=== PATIENT | male | born 1945 | race Caucasian/White ===

== ENCOUNTER 2016-06-27 16:38 | Inpatient (IN) | payer MEDICARE, OTHER ==
--- NOTE | ~2016-06-27 | EGD ---
EGD REPORT [facility] [address] [address] NAME: ROGERS ELIZALDE : [birth year] STATUS : ADM IN PAT#: [id number] AGE: 70 ADM/REG DATE : 06/27/16 MR#: [id number] REPORT SERV DATE: 07/03/16 DICTATED BY: SUKHDEV CLEMONS DATE: 07/03/16 REPORT STATUS : Draft [facility]ANS[facility]: [facility] DATE: 07/03/16 Endoscopy Center Patient Name: Rogers Elizalde Date of : 1945 Attending MD: SUKHDEV CLEMONS MD Procedure Date No Time: 07/03/2016 Procedure: Colonoscopy Indications: Hematochezia, Heme positive stool, Rectal bleeding, Acute post hemorrhagic anemia, Personal history of colonic polyps Medicines: Propofol per Anesthesia Complications: No immediate complications. Procedure: Pre-Anesthesia Assessment: - ASA Grade Assessment: III - A patient with severe systemic disease. After I obtained informed consent, the scope was passed under direct vision. Throughout the procedure, the patient's blood pressure, pulse, and oxygen saturations were monitored continuously. The CF [id number] was introduced through the anus and advanced to the terminal ileum. The colonoscopy was performed without difficulty. The patient tolerated the procedure well. The quality of the bowel preparation was excellent. Findings: The perianal and digital rectal examinations were normal. The terminal ileum appeared normal. The colon (entire examined portion) appeared normal. Non-bleeding internal hemorrhoids were found during retroflexion and were mild, small and Grade I (internal hemorrhoids that do not prolapse). Impression: - The examined portion of the ileum was normal. - The entire examined colon is normal. - Non-bleeding internal hemorrhoids. Recommendation: - Return to previous diet. - Continue present medications. - Resume Coumadin (warfarin) at prior dose today. Refer to managing physician for further adjustment of therapy. - Repeat colonoscopy in 3 years for surveillance. - Check hemoglobin daily. - Check CBC,BMP,LFTs,Mg, in the morning. - [facility]. Procedure Code(s): --- Professional --- EGD REPORT [address] [address] NAME: ROGERS ELIZALDE : [birth year] STATUS : ADM IN [facility]#: [id number] AGE: 70 ADM/REG DATE : 06/27/16 MR#: [id number] REPORT SERV DATE: 07/03/16 DICTATED BY: SUKHDEV CLEMONS DATE: 07/03/16 REPORT STATUS : Draft TRANSCRIBED BY: [employer] DATE: 07/03/16 [address]64[address], Colonoscopy, flexible, proximal to splenic flexure; diagnostic, with or without collection of specimen(s) by brushing or washing, with or without colon decompression (separate procedure) Diagnosis Code(s): --- Professional --- K64.0, First degree hemorrhoids K92.1, Melena R19.5, Other fecal abnormalities K62.5, Hemorrhage of anus and rectum D62, Acute posthemorrhagic anemia Z86.010, Personal history of colonic polyps CPT copyright 2013 [employer]. All rights reserved. The codes documented in this report are preliminary and upon clinical coder review may be revised to meet current compliance requirements. Sukhdev Clemons MD SUKHDEV CLEMONS MD 07/03/2016 4:18 PM This report has been signed electronically. Number of Addenda: 0 Note Initiated On: 07/03/2016 3:22 PM Scope Withdrawal Time 0 hours 24 minutes 37 seconds [address] [place] [address]
--- NOTE | ~2016-06-27 | DS ---
Discharge Summary [address] [id number] [place]. [address] NAME: SNEHA BRICEÑO : [birth year] STATUS : ADM IN PAT#: [id number] AGE: 70 ADM/REG DATE : 06/27/16 MR#: [id number] REPORT SERV DATE: 07/06/16 DICTATED BY: YANI CORDOVA DATE: 07/05/16 REPORT STATUS : Draft TRANSCRIBED BY: MODL DATE: 07/05/16 ADMISSION DATE: 06/27/2016 DISCHARGE DATE: 07/05/2016 CONDITION ON DISCHARGE: Stable. DIAGNOSES ON DISCHARGE: 1. Gastrointestinal bleed, probably lower gastrointestinal bleed, could have been from diverticulosis/hemorrhoids, upper gastrointestinal bleed had an unclear source. 2. The patient underwent both upper and lower endoscopy. Upper endoscopy did not show any evidence of any acute bleed. Lower endoscopy showed colon filled with blood initially. Repeat colonoscopy showed that the blood had completely cleared up and all the patient had was just internal hemorrhoids, hence, the source of bleed is still unclear, could have been hemorrhoids and/or diverticulosis and/or combination. 3. Hemorrhagic shock - resolved after resuscitation with blood transfusion. 4. Paroxysmal atrial fibrillation and status post aortic valve replacement with mechanical aortic valve - the patient is on chronic anticoagulation with Coumadin. This is stable now and Coumadin has been restarted as the patient has been having more episodes of gastrointestinal bleed. 5. Acute blood loss anemia - resolved. 6. Hypertension - stable. 7. History of previous gastric bypass. 8. Chronic low back pain. 9. Chronic kidney disease, stage IV, followed by Dr. Anthony Akbar. Hypertension is controlled now with the lower dose of Coreg at 6.25 mg twice a day. As the patient had an episode of hypotension or low blood pressure, Norvasc has been stopped and his lisinopril has been stopped also. His Lasix is being resumed at 40 mg once a day instead of twice a day. ADVICE ON DISCHARGE: For the patient to follow up with Dr. Resendiz in one or two weeks as scheduled before. Dr. Resendiz is his director of technology. BRIEF HOSPITAL COURSE: I took care of this patient on 07/03/2016 onwards. For hospital course before that, please refer to interim discharge summary dictated by Dr. Clement. After I got the patient as a transfer back, he was stabilized. He had no more episodes of GI bleed, but the patient was scheduled for another colonoscopy as a colonoscopy that was performed by Dr. Finley first time showed that his entire colon was filled with blood and there was very poor visibility. But on the day that the patient was about to have colonoscopy, his potassium came back at 5.9, and hence, this was canceled briefly. The patient was given a dose of Lasix and this brought his potassium down and eventually he did get the second colonoscopy done on 07/03/2016. This colonoscopy showed that the colon was clear of blood, but the patient did have internal hemorrhoids. The patient was transferred back to the floor in stable condition. He was doing well and was about to be discharged yesterday when his blood pressure dropped after he was given a dose of Coreg. It was deemed that the patient was extremely dry and dehydrated and his fluid intake was increased and he Discharge Summary [address] [address] NAME: SNEHA BRICEÑO : [birth year] STATUS : ADM IN [facility]#: [id number] AGE: 70 ADM/REG DATE : 06/27/16 MR#: [id number] REPORT SERV DATE: 07/06/16 DICTATED BY: YANI CORDOVA DATE: 07/05/16 REPORT STATUS : Draft TRANSCRIBED BY: TRACE DATE: 07/05/16 was started on IV normal saline. With fluid resuscitation again, his blood pressure stabilized. Dr. Resendiz was consulted also briefly. The suggestion now is for patient to continue Coreg 6.25 mg p.o. b.i.d. Note that this is a much lower dose than his home dose. So, the patient finally will be discharged on the following medications where there are significant changes. He will continue taking the home dose of the following medications: 1. Lipitor 40 mg once a day. 2. Calcitriol 0.25 mcg once a day. 3. Cymbalta 60 mg once a day. 4. Vitamin D as he takes all the time. 5. Levothyroxine 50 mcg p.o. daily. 6. Lyrica 75 mg p.o. b.i.d. 7. Zanaflex 4 mg p.o. daily. 8. Hydrocodone/APAP or [place] 10/325 one p.o. q.6 hours p.r.n. for back pain. 9. Ambien 10 mg p.o. q.h.s. p.r.n. 10.He will continue his home Coumadin dose at 8.5 mg p.o. daily. The patient is very well aware of his condition and well aware as to how to adjust his Coumadin dose and how important it is to follow up with PT/INR. The following changes have been made to the following medications, however, 1. The patient will reduce the dose of Coreg to 6.25 mg p.o. b.i.d. 2. Lasix reduced to 40 mg once a day instead of twice a day. 3. He will stop his amlodipine and he will also stop his lisinopril. The patient again is to follow up with Dr. Resendiz in the next one to two weeks and with PCP within the next two weeks to three weeks. The patient states that he will make arrangements for that himself. I have the following labs on this patient on the day of discharge, his hemoglobin is 8.9, hematocrit is 27.7, WBC count is 6.8, and platelet count is 197. His electrolyte profile shows sodium of 145, potassium of 5.1, chloride of 114, BUN is 44, creatinine is 2.37 which is consistent with his CKD, stage IV. Magnesium levels have also come down and is 2.5 right now. Hence, the patient is being discharged home in stable condition with above medications and above instructions. I have spent about 40 minutes in coordinating discharge care of this patient including face- to-face encounter and summarizing this entire discharge. RRA/MODL Yani Cordova M.D. / [id number] CC: Discharge Summary [address] [facility] [place] [address] NAME: SNEHA BRICEÑO DEANDRE : [birth year] STATUS : ADM IN [facility]#: [id number] AGE: 70 ADM/REG DATE : 06/27/16 MR#: [id number] REPORT SERV DATE: 07/06/16 DICTATED BY: YANI CORDOVA DATE: 07/05/16 REPORT STATUS : Draft TRANSCRIBED BY: MODL DATE: 07/05/16 Sherif Cabrera M.D.
--- NOTE | ~2016-06-27 | DS ---
Discharge Summary [facility] [address] [place]. [address] NAME: SNEHA BRICEÑO : 47 STATUS : DIS IN PAT#: [id number] AGE: 70 ADM/REG DATE : 06/27/16 MR#: [id number] REPORT SERV DATE: 07/09/16 DICTATED BY: YANI CORDOVA DATE: 07/08/16 REPORT STATUS : Draft TRANSCRIBED BY: MODL DATE: 07/08/16 ADMISSION DATE: 06/27/2016 DISCHARGE DATE: 07/08/2016 ADDENDUM: DISPOSITION: Discharge to home. BRIEF HOSPITAL COURSE: The patient's discharge was held by both his export packer, Dr. Resendiz and myself so that his INR could at least get close to being therapeutic. This is because the patient has metallic or mechanical aortic valve, and his INR needs to be between 2.5 and 3.5. The patient understood the high risk of embolic stroke if his INR was not therapeutic. Besides his GI bleed had completely resolved. Hence, we were waiting for his INR to be therapeutic and given his renal function also as patient has CKD level 4, it was a very delicate issue to send the patient home without his INR being therapeutic. He was monitored from 07/05/2016 to 07/08/2016. He has been given Coumadin 15 mg yesterday, and finally, his INR is close to 2 at 1.5. However, patient insists that he goes home. However, patient is very aware of his own condition, he has his own machine at home and he checks his own INR at home. He has been doing this for years and has been adjusting his own medications too. So this is a very compliant and very knowledgeable patient, who is well aware of his condition. So he is being discharged home today 07/08/2016 with the following advice. He will take 15 mg of Coumadin tonight, and tomorrow, he will back down on the Coumadin to 12 mg. He will continue the 12 mg on 07/10/2016. After 07/09/2016, he will go back to his home dose of 8.5 mg p.o. at bedtime. The patient has also been advised to check his INR daily for the next three days, and after that, go every other day before he goes to checking his INR once a week. He understands that his INR has to get therapeutic and has to be above 2 and close to at least 2.5 before he is able to back off on his Coumadin. He knows how to adjust his own Coumadin dose and he will be probably on his chronic Coumadin therapy at 8.5 mg p.o. daily within the next few days. He will follow up with export packer, Dr. Resendiz within a week and also his kidney specialist, Dr. Akbar within the next few weeks as scheduled. Otherwise nothing else has changed in his original discharge summary that I have dictated on the 07/05/2016. Hence, the patient is being discharged home in stable condition with the above instructions. RRA/MODL Yani Cordova M.D. / [id number] CC: Sherif Cabrera M.D.
--- NOTE | ~2016-06-27 | EGD ---
EGD REPORT [facility] [address] [address] NAME: ROGERS ELIZALDE : 47 STATUS : ADM IN PAT#: [id number] AGE: 70 ADM/REG DATE : 06/27/16 MR#: [id number] REPORT SERV DATE: 06/29/16 DICTATED BY: SUKHDEV CLEMONS DATE: 06/29/16 REPORT STATUS : Draft [facility]ANSCRIBED [facility]: [facility] DATE: 06/29/16 Endoscopy Center Patient Name: Rogers Elizalde Date of : 1945 Attending MD: SUKHDEV CLEMONS MD Procedure Date No Time: 06/29/2016 Procedure: Colonoscopy Indications: Hematochezia, Rectal bleeding, Gastrointestinal bleeding, Acute post hemorrhagic anemia Referring MD: Phoebe CORONADO MD Medicines: Sedation Administered by an Anesthesia Professional Complications: Hypotension, treated with medication, and termination of the procedure. Procedure: Pre-Anesthesia Assessment: - ASA Grade Assessment: III - A patient with severe systemic disease. After I obtained informed consent, the scope was passed under direct vision. Throughout the procedure, the patient's blood pressure, pulse, and oxygen saturations were monitored continuously. The [id number] was introduced through the anus and advanced to the cecum, identified by appendiceal orifice and ileocecal valve. The colonoscopy was performed with difficulty due to the patient's cardiovascular instability (hypotension). Successful completion of the procedure was aided by managing the patient's medical instability. The patient tolerated the procedure poorly due to the patient's cardiovascular instability (hypotension). The quality of the bowel preparation was poor. Findings: The digital rectal exam was abnormal. Findings include dark red blood on the digit. Red blood was found at the anus, in the rectum, in the recto-sigmoid colon, in the sigmoid colon, in the descending colon, at the splenic flexure, in the transverse colon, at the hepatic flexure, in the ascending colon, in the cecum and at the ileocecal valve. before I could intubate the TI he bceame very hypotensive and was not responding to meds and I was asked to terminate the procedure by Anesthesia and the scope was removed rapidly for patient safety. When the scope was removed he stabilized. Impression: - Preparation of the colon was poor. - Dark red blood on the digit found on digital rectal exam. EGD REPORT [place] [address] [facility] [place]. [address] NAME: ROGERS ELIZALDE : [birth year] STATUS : ADM IN [facility]#: [id number] AGE: 70 ADM/REG DATE : 06/27/16 MR#: [id number] REPORT SERV DATE: 06/29/16 DICTATED BY: SUKHDEV CLEMONS DATE: 06/29/16 REPORT STATUS : Draft TRANSCRIBED BY: [employer] DATE: 06/29/16 - Blood at the anus, in the rectum, in the recto-sigmoid colon, in the sigmoid colon, in the descending colon, at the splenic flexure, in the transverse colon, at the hepatic flexure, in the ascending colon, in the cecum and at the ileocecal valve. Recommendation: - Clear liquid diet. - Do a GI bleeding (tagged RBC) scan today. - possibly an angiogram - [facility]. Procedure Code(s): --- Professional --- [address], Colonoscopy, flexible, proximal to splenic flexure; diagnostic, with or without collection of specimen(s) by brushing or washing, with or without colon decompression (separate procedure) Diagnosis Code(s): --- Professional --- K62.5, Hemorrhage of anus and rectum K92.2, Gastrointestinal hemorrhage, unspecified K92.1, Melena D62, Acute posthemorrhagic anemia I95.89, Other hypotension CPT copyright 2013 [employer]. All rights reserved. The codes documented in this report are preliminary and upon production line mechanic review may be revised to meet current compliance requirements. Sukhdev Clemons MD SUKHDEV CLEMONS MD 06/29/2016 1:01 PM This report has been signed electronically. Number of Addenda: 0 Note Initiated On: 06/29/2016 10:30 AM Scope Withdrawal Time 0 hours 1 minute 16 seconds [address] [address]
--- NOTE | ~2016-06-27 | CN ---
Consultation Report [facility] [address] [place]. [address] NAME: SNEHA BRICEÑO : [birth year] STATUS : ADM IN PAT#: [id number] AGE: 70 ADM/REG DATE : 06/27/16 MR#: [id number] REPORT SERV DATE: 07/01/16 DICTATED BY: DERRICK CROSS DATE: 06/30/16 REPORT STATUS : Draft TRANSCRIBED BY: MODL DATE: 06/30/16 SURGERY CONSULTATION NOTE DATE OF CONSULTATION: 06/30/2016 REASON FOR CONSULTATION: GI bleed. HISTORY OF PRESENT ILLNESS: This is a 70-year-old male with a history of stage IV chronic kidney disease, diabetes mellitus, coronary artery bypass grafting with mechanical aortic valve replacement for which the patient is chronically anticoagulated on Coumadin as well as Rey-en-Y gastric bypass in 1999. The patient describes a 4-day history of blood per rectum started initially as diarrhea. The patient then reported it became more melenic and subsequently progressed to gross hematochezia with clots. The patient was seen in the emergency department and transfused 4 units of packed red blood cells and 4 units of FFP. GI was consulted. EGD was performed, which demonstrated no active bleeding. A colonoscopy was performed, which demonstrated blood throughout the entirety of the colon, but otherwise nondiagnostic. Of note, the patient did become hypotensive during the colonoscopy procedure. The patient's hematocrit has been stable at 30 over the last 24 hours. Heparin drip is being started today. Surgery was consulted to evaluate for a possible surgical intervention. Of note, the patient also had a tagged red blood cell scan, which also did not demonstrate any active bleeding. ALLERGIES: NO KNOWN DRUG ALLERGIES. PAST MEDICAL HISTORY: Per history of present illness along with atrial fibrillation, pacemaker, hypertension, peripheral neuropathy. PAST SURGICAL HISTORY: Per history of present illness along with cholecystectomy and ventral hernia repair with small bowel resection and a Maze procedure. MEDICATIONS: Per medication reconciliation. FAMILY HISTORY: Alzheimer's disease and coronary artery disease. SOCIAL HISTORY: No alcohol. The patient had past tobacco use, but does not currently smoke. REVIEW OF SYSTEMS: A 12-point review of systems is conducted and notable for those items in the history of present illness. PHYSICAL EXAMINATION: VITAL SIGNS: Temperature 97.9, blood pressure 153/72, heart rate 88, respiratory rate 14, pulse oximetry 96% on 2 L nasal cannula. GENERAL: No acute distress. Alert and oriented x3. Consultation Report [facility] [address] [place]. [address] NAME: SNEHA BRICEÑO : [birth year] STATUS : ADM IN [facility]#: [id number] AGE: 70 ADM/REG DATE : 06/27/16 MR#: [id number] REPORT SERV DATE: 07/01/16 DICTATED BY: DERRICK CROSS DATE: 06/30/16 REPORT STATUS : Draft TRANSCRIBED BY: [employer]ACE DATE: 06/30/16 HEENT: Normocephalic and atraumatic. Pupils are equal, round, and reactive to light and accommodation. Extraocular muscles intact. NECK: Supple and nontender. CARDIOVASCULAR: Regular rate and rhythm. PULMONARY: Clear to auscultation bilaterally. ABDOMEN: Soft, nondistended, and nontender. EXTREMITIES: Moves all extremities. 2+ radial pulses bilaterally. LABORATORY STUDIES: Significant for hematocrit of 30, which has been stable over 24 hours. Last INR was 1.3. BMP remarkable for elevated BUN of 99, creatinine of 2.4. ASSESSMENT AND PLAN: This is a 70-year-old male with a gastrointestinal bleed possibly from gastric remnant and duodenal limb as the patient is status post gastric bypass. Given the patient's hematocrit is stable, the patient is likely no longer bleeding, I would recommend continuing to check serial hematocrits after beginning heparin. If the patient rebleeds, the patient may require surgical exploration. DICTATED BY: MD CLINTON Reynaga/TRACE Derrick Cross M.D. / [id number] CC: Evelin Zhong M.D.
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
--- NOTE | ~2016-06-27 | CN ---
Consultation Report [address] [place]. [address] NAME: ROGERS ELIZALDE : 47 STATUS : ADM IN PAT#: [id number] AGE: 70 ADM/REG DATE : 06/27/16 MR#: [id number] REPORT SERV DATE: 07/01/16 DICTATED BY: JOSE ELDRIDGE DATE: 07/01/16 REPORT STATUS : Draft TRANSCRIBED BY: MODMena DATE: 07/01/16 CONSULTATION DATE OF CONSULTATION: REASON FOR CONSULTATION: Rogers Elizalde is a 70-year-old male, known to our service, who enters with GI bleed. CVD PHYSICIAN: Wilfrid Resendiz M.D. HISTORY OF PRESENT ILLNESS: Mr. Elizalde was admitted on 06/27 with GI bleed, after noting bright red blood in his stool, this is now resolved and we are asked to consider anticoagulation status. REVIEW OF SYSTEMS: Negative for chest pain, chest discomfort, palpitations, syncope, presyncope, or fever. PAST MEDICAL HISTORY: 1. History of gastric bypass. 2. History of coronary bypass grafting in 2010. 3. History of atrial fibrillation, on anticoagulation. 4. History of bilateral DVT. 5. History of hyperlipidemia. 6. History of permanent cardiac pacemaker. 7. Type 2 diabetes. SOCIAL HISTORY: He does not drink or smoke. He has recently had gastric bypass surgery in the year 1999. FAMILY HISTORY: Negative for early heart disease. PHYSICAL EXAMINATION: VITAL SIGNS: Blood pressure is 127/78 with 193/96 yesterday. Pulse is in the high 90s. He is afebrile, resting comfortably. GENERAL: He is alert, oriented, resting well. He is still moderately obese. EYES: PERRLA. LUNGS: No labored use of accessory muscles without rales or wheezes. COR: PMI is not displaced. No thrills or heaves. NL S1 and S2. No S3, murmur, click, or rub. PULSES: Carotids without bruits. ABD: +BS, nontender. EXT: No cyanosis, clubbing, or edema. SKIN: No petechiae. NEURO: Alert and oriented. Does not appear anxious or depressed. Consultation Report [address] [place]. [address] NAME: ROGERS ELIZALDE : 47 STATUS : ADM IN PAT#: [id number] AGE: 70 ADM/REG DATE : 06/27/16 MR#: [id number] REPORT SERV DATE: 07/01/16 DICTATED BY: JOSE ELDRIDGE DATE: 07/01/16 REPORT STATUS : Draft TRANSCRIBED BY: TRACE DATE: 07/01/16 LABORATORY EVALUATION: None new at this time. Creatinine is elevated at 1.9. INR is 1.3. ASSESSMENT: 1. High risk off anticoagulation. Full-dose cardiac heparin has been started. We will start Coumadin if cleared by GI. 2. Chronic kidney disease, currently stable. 3. Hypertension. We will restart antihypertensive medication including Norvasc and carvedilol. We will restart lisinopril in the morning if blood pressure tolerates. 4. GI bleed. We will check with GI before starting anticoagulation. 5. History of sick sinus syndrome, status post pacemaker placement with underlying chronic atrial fibrillation. GARRETT/TRACE Jose Eldridge M.D. / [id number] CC: Sherif Munoz M.D.
--- NOTE | ~2016-06-27 | EGD ---
EGD REPORT [facility] [address] [address] NAME: ROGERS ELIZALDE : 47 STATUS : ADM IN PAT#: [id number] AGE: 70 ADM/REG DATE : 06/27/16 MR#: [id number] REPORT SERV DATE: 06/28/16 DICTATED BY: SUKHDEV CLEMONS DATE: 06/28/16 REPORT STATUS : Draft TRANSCRIBED BY: [facility] DATE: 06/28/16 Endoscopy Center Patient Name: Rogers Elizalde Date of : 1945 Attending MD: SUKHDEV CLEMONS MD Procedure Date No Time: 06/28/2016 Procedure: Upper GI endoscopy Indications: Acute post hemorrhagic anemia, Hematochezia, Heme positive stool, Melena Referring MD: Phoebe CORONADO MD Medicines: Propofol per Anesthesia Complications: No immediate complications. Procedure: Pre-Anesthesia Assessment: - ASA Grade Assessment: IV - A patient with severe systemic disease that is a constant threat to life. After obtaining informed consent, the endoscope was passed under direct vision. Throughout the procedure, the patient's blood pressure, pulse, and oxygen saturations were monitored continuously. The GIF [id number] [id number] was introduced through the mouth, and advanced to the efferent jejunal loop. The upper GI endoscopy was accomplished without difficulty. The patient tolerated the procedure well. Findings: The examined esophagus was normal. A small hiatus hernia was present. as seen on retroflexion Evidence of a gastric bypass was found. A gastric pouch with a normal size was found. The staple line appeared intact. The gastrojejunal anastomosis was characterized by healthy appearing mucosa. This was traversed. The mlyho-ct-wpheyfq limb was characterized by healthy appearing mucosa. The omqkygcy-xf-buzddkw limb was not examined as it could not be reached. The entire examined stomach was normal. The examined jejunum was normal. Impression: - Normal esophagus. - Hiatus hernia. - Gastric bypass with a normal-sized pouch intact staple line. - Normal stomach. - Normal examined jejunum. Recommendation: - Clear liquid diet. - Perform a colonoscopy tomorrow. EGD REPORT [address] [address] NAME: ROGERS ELIZALDE : 47 STATUS : ADM IN [facility]#: [id number] AGE: 70 ADM/REG DATE : 06/27/16 MR#: [id number] REPORT SERV DATE: 06/28/16 DICTATED BY: SUKHDEV CLEMONS DATE: 06/28/16 REPORT STATUS : Draft TRANSCRIBED BY: Panève DATE: 06/28/16 - Check hemoglobin q 6 hours for two days. - Check PT/INR tonight. - Check PT/INR in the morning. - [facility] patient [facility]. Procedure Code(s): --- Professional --- 19846, Esophagogastroduodenoscopy, flexible, transoral; diagnostic, including collection of specimen(s) by brushing or washing, when performed (separate procedure) Diagnosis Code(s): --- Professional --- K44.9, Diaphragmatic hernia without obstruction or gangrene Z98.84, Bariatric surgery status D62, Acute posthemorrhagic anemia K92.1, Melena R19.5, Other fecal abnormalities CPT copyright 2013 [employer]. All rights reserved. The codes documented in this report are preliminary and upon field recruiter review may be revised to meet current compliance requirements. Sukhdev Clemons MD SUKHDEV CLEMONS MD 06/28/2016 3:50 PM This report has been signed electronically. Number of Addenda: 0 Note Initiated On: 06/28/2016 3:11 PM Scope Withdrawal Time 0 hours 0 minutes 0 seconds [address] [address]
[2016-06-27 16:56] LABS: BASOPHILS 0.2 %; BASOPHILS ABSOLUTE 0.03 10/3/uL (0.0-0.16); EOSINOPHILS 2.3 %; IMMATURE GRANULOCYTES 1.1 %; IMMATURE GRANULOCYTES ABSOLUTE 0.15 10/3/uL (0.0-0.11); LYMPHOCYTES 9.6 %; LYMPHOCYTES ABSOLUTE 1.27 10/3/uL (0.67-4.30); MEAN CORPUS HGB CONC 33.2 g/dL (32.0-36.0); MEAN CORPUSCULAR HEMOGLOB 32.1 pg (26.0-34.0); MEAN CORPUSCULAR VOLUME 96.6 fL (80-100); MEAN PLATELET VOLUME 10.4 fL (9.2-13.0); MONOCYTES 7.8 %; MONOCYTES ABSOLUTE 1.03 10/3/uL (0.21-1.20); NEUTROPHILS ABSOLUTE 10.42 10/3/uL (2.02-8.40); WHITE BLOOD CELLS 13.2 10/3/uL (4.5-10.5)
[2016-06-27 16:58] LABS: HEMATOCRIT 28.6 % (40.0-51.0); HEMOGLOBIN 9.5 g/dL (13.6-17.8); MANUAL DIFF NO %; PLATELET COUNT 279 10/3/uL (150-400); RED CELL COUNT 2.96 10/6/uL (4.7-6.1)
[2016-06-27 17:06] LABS: INTERNATIONAL NORMAL RATI 1.9 UNITS (-); PARTIAL THROMBO TIME 25.8 SEC (22.5-37.2); PROTIME (NOT ORD) 21.7 SEC (12.0-14.5)
[2016-06-27 17:10] LABS: CALCIUM, SERUM 8.1 MG/DL (8.5-10.4); CHLORIDE, SERUM 108 MMOL/L (96-112); CO2 (CARBON DIOXIDE) 24 MMOL/L (24-34); CREATININE 2.58 MG/DL (0.70-1.30); GFR AFRICAN AMERICAN 28 ML/MIN (>=60); GFR NON AFRICAN AMERICAN 24 ML/MIN (>=60); POTASSIUM, SERUM 5.2 MMOL/L (3.5-5.3); SGOT(AST) 30 U/L (5-40); SGPT(ALT) 40 U/L (5-65); SODIUM, SERUM 142 MMOL/L (135-148); TOTAL BILIRUBIN 0.5 MG/DL (0-1.2)
[2016-06-27 17:11] LABS: ALKALINE PHOSPHATASE 75 U/L (45-117); BUN (BLOOD UREA NITROGEN) 104 MG/DL (6-23); GLOBULIN 3.1 G/DL (2.5-4.1); GLUCOSE, SERUM 160 MG/DL (60-99); TOTAL PROTEIN 6.1 G/DL (6.0-8.5)
[2016-06-27] MEDS ORDERED: NORV5 PO (17:50)
[2016-06-27] MEDS ORDERED: AUG875 PO (17:52)
[2016-06-27] MEDS ORDERED: LIPITOR40 PO (17:53)
[2016-06-27] MEDS ORDERED: CYMBALTA60 PO (17:53)
[2016-06-27] MEDS ORDERED: COREG25 PO (17:53)
[2016-06-27] MEDS ORDERED: ROCALTROL0.25 MCG PO (17:53)
[2016-06-27] MEDS ORDERED: ZESTRIL20 MG PO (17:54)
[2016-06-27] MEDS ORDERED: NORCO1 TAB PO (17:54)
[2016-06-27] MEDS ORDERED: L80 PO (17:54)
[2016-06-27] MEDS ORDERED: LEVOTHYROXIN50 MCG PO (17:54)
[2016-06-27] MEDS ORDERED: ZANAFLEX 4 MG TA4 MG PO (17:55)
[2016-06-27] MEDS ORDERED: LYRICA75 PO (17:55)
[2016-06-27] MEDS ORDERED: BACTROCR TOP (17:55)
[2016-06-27] MEDS ORDERED: C1 PO (17:56)
[2016-06-27] MEDS ORDERED: VITD PO (17:56)
[2016-06-27] MEDS ORDERED: FERROUS SULF325 M1 PO (17:57)
[2016-06-27] MEDS ORDERED: AMB10 PO (17:57)
[2016-06-27] MEDS ORDERED: DSS PO (17:57)
[2016-06-27 22:29] LABS: GLYCOHEMOGLOBIN (HbA1c) 5.7 % (4.7-6.1)
[2016-06-27 22:56] LABS: HEMATOCRIT 26.6 % (40.0-51.0); HEMOGLOBIN 8.7 g/dL (13.6-17.8)
[2016-06-27 22:56] LABS: B NATRIURETIC PEPTIDE (BNP) 232.9 PG/ML (< 100.0)
[2016-06-28 05:14] LABS: INTERNATIONAL NORMAL RATI 1.5 UNITS (-)
[2016-06-28 05:17] LABS: BASOPHILS 0.3 %; BASOPHILS ABSOLUTE 0.03 10/3/uL (0.0-0.16); EOSINOPHILS 2.4 %; EOSINOPHILS ABSOLUTE 0.24 10/3/uL (0.0-0.53); LYMPHOCYTES 22.5 %; LYMPHOCYTES ABSOLUTE 2.26 10/3/uL (0.67-4.30); MEAN CORPUS HGB CONC 33.5 g/dL (32.0-36.0); MEAN CORPUSCULAR HEMOGLOB 32.4 pg (26.0-34.0); MEAN CORPUSCULAR VOLUME 96.8 fL (80-100); MEAN PLATELET VOLUME 10.3 fL (9.2-13.0); MONOCYTES 7.8 %; MONOCYTES ABSOLUTE 0.78 10/3/uL (0.21-1.20); NEUTROPHILS ABSOLUTE 6.64 10/3/uL (2.02-8.40); PLATELET COUNT 232 10/3/uL (150-400); RBC DISTRIBUTION WIDTH 14.9 % (12.0-16.0); RED CELL COUNT 2.47 10/6/uL (4.7-6.1); WHITE BLOOD CELLS 10.1 10/3/uL (4.5-10.5)
[2016-06-28 05:18] LABS: ER CBC TAT 0 Hrs 22 MinsNP; HEMATOCRIT 23.9 % (40.0-51.0); MANUAL DIFF NO %; PROTIME (NOT ORD) 17.7 SEC (12.0-14.5)
[2016-06-28 05:22] LABS: BUN (BLOOD UREA NITROGEN) 99 MG/DL (6-23); CALCIUM, SERUM 8.4 MG/DL (8.5-10.4); CHLORIDE, SERUM 108 MMOL/L (96-112); CO2 (CARBON DIOXIDE) 25 MMOL/L (24-34); GFR AFRICAN AMERICAN 31 ML/MIN (>=60); GFR NON AFRICAN AMERICAN 27 ML/MIN (>=60); GLUCOSE, SERUM 109 MG/DL (60-99); POTASSIUM, SERUM 4.7 MMOL/L (3.5-5.3); SODIUM, SERUM 143 MMOL/L (135-148)
[2016-06-28 12:02] LABS: HEMATOCRIT 18.8 % (40.0-51.0); HEMOGLOBIN 6.2 g/dL (13.6-17.8)
[2016-06-28 12:11] LABS: INTERNATIONAL NORMAL RATI 1.6 UNITS (-); PROTIME (NOT ORD) 18.6 SEC (12.0-14.5)
[2016-06-28 17:33] LABS: HEMATOCRIT 26.7 % (40.0-51.0)
[2016-06-28 22:56] LABS: HEMATOCRIT 26.8 % (40.0-51.0); HEMOGLOBIN 9.2 g/dL (13.6-17.8)
[2016-06-29 05:58] LABS: INTERNATIONAL NORMAL RATI 1.4 UNITS (-); PROTIME (NOT ORD) 16.8 SEC (12.0-14.5)
[2016-06-29 06:09] LABS: BASOPHILS 0.5 %; BASOPHILS ABSOLUTE 0.05 10/3/uL (0.0-0.16); EOSINOPHILS 6.7 %; EOSINOPHILS ABSOLUTE 0.62 10/3/uL (0.0-0.53); HEMATOCRIT 24.2 % (40.0-51.0); HEMOGLOBIN 8.2 g/dL (13.6-17.8); IMMATURE GRANULOCYTES 1.1 %; LYMPHOCYTES 23.5 %; LYMPHOCYTES ABSOLUTE 2.19 10/3/uL (0.67-4.30); MEAN CORPUS HGB CONC 33.9 g/dL (32.0-36.0); MEAN CORPUSCULAR HEMOGLOB 31.5 pg (26.0-34.0); MEAN PLATELET VOLUME 10.6 fL (9.2-13.0); MONOCYTES 7.7 %; MONOCYTES ABSOLUTE 0.72 10/3/uL (0.21-1.20); NEUTROPHILS 60.5 %; NEUTROPHILS ABSOLUTE 5.64 10/3/uL (2.02-8.40); PLATELET COUNT 220 10/3/uL (150-400); RBC DISTRIBUTION WIDTH 17.3 % (12.0-16.0); WHITE BLOOD CELLS 9.3 10/3/uL (4.5-10.5)
[2016-06-29 06:14] LABS: MANUAL DIFF NO %; MEAN CORPUSCULAR VOLUME 93.1 fL (80-100)
[2016-06-29 06:17] LABS: ALBUMIN 2.9 G/DL (3.5-5.0); ALKALINE PHOSPHATASE 69 U/L (45-117); CALCIUM, SERUM 8.2 MG/DL (8.5-10.4); CHLORIDE, SERUM 113 MMOL/L (96-112); CO2 (CARBON DIOXIDE) 24 MMOL/L (24-34); CREATININE 2.05 MG/DL (0.70-1.30); GFR AFRICAN AMERICAN 37 ML/MIN (>=60); GFR NON AFRICAN AMERICAN 32 ML/MIN (>=60); GLOBULIN 2.9 G/DL (2.5-4.1); GLUCOSE, SERUM 94 MG/DL (60-99); POTASSIUM, SERUM 4.7 MMOL/L (3.5-5.3); SGOT(AST) 33 U/L (5-40); SGPT(ALT) 37 U/L (5-65); SODIUM, SERUM 147 MMOL/L (135-148); TOTAL BILIRUBIN 0.6 MG/DL (0-1.2); TOTAL PROTEIN 5.8 G/DL (6.0-8.5)
[2016-06-29 06:20] LABS: BUN (BLOOD UREA NITROGEN) 84 MG/DL (6-23)
[2016-06-29 09:09] LABS: HEMATOCRIT 23.7 % (40.0-51.0)
[2016-06-29 23:14] LABS: INTERNATIONAL NORMAL RATI 1.3 UNITS (-)
[2016-06-29 23:38] LABS: HEMATOCRIT 29.8 % (40.0-51.0)
[2016-06-30 04:01] LABS: HEMATOCRIT 30.2 % (40.0-51.0); HEMOGLOBIN 10.2 g/dL (13.6-17.8)
[2016-06-30 04:06] LABS: INTERNATIONAL NORMAL RATI 1.3 UNITS (-); PROTIME (NOT ORD) 16.1 SEC (12.0-14.5)
[2016-06-30 08:41] LABS: HEMOGLOBIN 9.8 g/dL (13.6-17.8); MEAN CORPUS HGB CONC 32.7 g/dL (32.0-36.0); MEAN CORPUSCULAR HEMOGLOB 30.2 pg (26.0-34.0); MEAN CORPUSCULAR VOLUME 92.3 fL (80-100); PLATELET COUNT 203 10/3/uL (150-400); RBC DISTRIBUTION WIDTH 17.9 % (12.0-16.0); RED CELL COUNT 3.25 10/6/uL (4.7-6.1); WHITE BLOOD CELLS 7.7 10/3/uL (4.5-10.5)
[2016-06-30 08:42] LABS: MANUAL DIFF YES %
[2016-06-30 09:14] LABS: BASOPHILS ABSOLUTE (CALC) 0.15 10/3/uL (0.0-0.16); EOSINOPHILS ABSOLUTE (CALC) 0.15 10/3/uL (0.0-0.53); LYMPHOCYTES 16 %; LYMPHOCYTES ABSOLUTE (CALC) 1.23 10/3/uL (0.67-4.30); MONOCYTES 8 %; MONOCYTES ABSOLUTE (CALC) 0.62 10/3/uL (0.21-1.20); NEUTROPHILS ABSOLUTE (CALC) 5.54 10/3/uL (2.02-8.40); SEGMENTED NEUTROPHIL (0) 72 %; TOTAL NUCLEATED CELLS 100
[2016-06-30 09:15] LABS: ANISOCYTOSIS 1+ (5-10/OIF) (0-5/OIF); EOSINOPHILS 4 %; PLATELET ESTIMATE ADQ (ADEQUATE)
[2016-06-30 16:41] LABS: HEMATOCRIT 27.6 % (40.0-51.0); HEMOGLOBIN 9.4 g/dL (13.6-17.8)
[2016-06-30 16:48] LABS: PARTIAL THROMBO TIME 39.3 SEC (22.5-37.2)
[2016-06-30 22:13] LABS: HEMATOCRIT 29.5 % (40.0-51.0)
[2016-06-30 22:23] LABS: PARTIAL THROMBO TIME 50.8 SEC (22.5-37.2)
[2016-07-01 06:22] LABS: BASOPHILS 0.4 %; BASOPHILS ABSOLUTE 0.04 10/3/uL (0.0-0.16); EOSINOPHILS 6.9 %; EOSINOPHILS ABSOLUTE 0.64 10/3/uL (0.0-0.53); HEMATOCRIT 29.2 % (40.0-51.0); IMMATURE GRANULOCYTES 0.6 %; IMMATURE GRANULOCYTES ABSOLUTE 0.06 10/3/uL (0.0-0.11); LYMPHOCYTES 20.6 %; LYMPHOCYTES ABSOLUTE 1.92 10/3/uL (0.67-4.30); MEAN CORPUS HGB CONC 34.2 g/dL (32.0-36.0); MEAN CORPUSCULAR HEMOGLOB 32.2 pg (26.0-34.0); MEAN CORPUSCULAR VOLUME 93.9 fL (80-100); MEAN PLATELET VOLUME 10.3 fL (9.2-13.0); MONOCYTES ABSOLUTE 0.84 10/3/uL (0.21-1.20); NEUTROPHILS 62.5 %; NEUTROPHILS ABSOLUTE 5.83 10/3/uL (2.02-8.40); PLATELET COUNT 248 10/3/uL (150-400); RBC DISTRIBUTION WIDTH 17.9 % (12.0-16.0); RED CELL COUNT 3.11 10/6/uL (4.7-6.1); WHITE BLOOD CELLS 9.3 10/3/uL (4.5-10.5)
[2016-07-01 06:30] LABS: INTERNATIONAL NORMAL RATI 1.3 UNITS (-); MANUAL DIFF NO %; PROTIME (NOT ORD) 16.3 SEC (12.0-14.5)
[2016-07-01 06:48] LABS: ALBUMIN 3.1 G/DL (3.5-5.0); ALKALINE PHOSPHATASE 76 U/L (45-117); CALCIUM, SERUM 8.8 MG/DL (8.5-10.4); CHLORIDE, SERUM 112 MMOL/L (96-112); CREATININE 1.89 MG/DL (0.70-1.30); GFR AFRICAN AMERICAN 41 ML/MIN (>=60); GFR NON AFRICAN AMERICAN 35 ML/MIN (>=60); POTASSIUM, SERUM 4.4 MMOL/L (3.5-5.3); SGOT(AST) 38 U/L (5-40); SGPT(ALT) 33 U/L (5-65); SODIUM, SERUM 142 MMOL/L (135-148); TOTAL BILIRUBIN 0.6 MG/DL (0-1.2); TOTAL PROTEIN 6.1 G/DL (6.0-8.5)
[2016-07-01 06:54] LABS: BUN (BLOOD UREA NITROGEN) 44 MG/DL (6-23); CO2 (CARBON DIOXIDE) 19 MMOL/L (24-34); GLUCOSE, SERUM 122 MG/DL (60-99)
[2016-07-01 07:00] LABS: PARTIAL THROMBO TIME > 150.0 SEC (22.5-37.2)
[2016-07-01 13:58] LABS: HEMATOCRIT 23.8 % (40.0-51.0); HEMOGLOBIN 7.8 g/dL (13.6-17.8)
[2016-07-01 14:04] LABS: INTERNATIONAL NORMAL RATI 1.4 UNITS (-); PROTIME (NOT ORD) 17.3 SEC (12.0-14.5)
[2016-07-01 14:06] LABS: PARTIAL THROMBO TIME 98.5 SEC (22.5-37.2)
[2016-07-02 07:19] LABS: BASOPHILS 0.3 %; BASOPHILS ABSOLUTE 0.02 10/3/uL (0.0-0.16); EOSINOPHILS 6.8 %; EOSINOPHILS ABSOLUTE 0.45 10/3/uL (0.0-0.53); IMMATURE GRANULOCYTES 0.5 %; IMMATURE GRANULOCYTES ABSOLUTE 0.03 10/3/uL (0.0-0.11); LYMPHOCYTES 18.2 %; MEAN CORPUSCULAR HEMOGLOB 30.1 pg (26.0-34.0); MEAN CORPUSCULAR VOLUME 91.1 fL (80-100); MEAN PLATELET VOLUME 9.9 fL (9.2-13.0); MONOCYTES 8.6 %; MONOCYTES ABSOLUTE 0.57 10/3/uL (0.21-1.20); NEUTROPHILS 65.6 %; NEUTROPHILS ABSOLUTE 4.34 10/3/uL (2.02-8.40); PLATELET COUNT 188 10/3/uL (150-400); RBC DISTRIBUTION WIDTH 17.2 % (12.0-16.0); RED CELL COUNT 3.36 10/6/uL (4.7-6.1); WHITE BLOOD CELLS 6.6 10/3/uL (4.5-10.5)
[2016-07-02 07:25] LABS: HEMATOCRIT 30.6 % (40.0-51.0); HEMOGLOBIN 10.1 g/dL (13.6-17.8); MANUAL DIFF NO %
[2016-07-02 07:33] LABS: CALCIUM, SERUM 8.3 MG/DL (8.5-10.4); CHLORIDE, SERUM 114 MMOL/L (96-112); CO2 (CARBON DIOXIDE) 22 MMOL/L (24-34); CREATININE 1.64 MG/DL (0.70-1.30); GFR AFRICAN AMERICAN 49 ML/MIN (>=60); GFR NON AFRICAN AMERICAN 42 ML/MIN (>=60); POTASSIUM, SERUM 4.5 MMOL/L (3.5-5.3); SODIUM, SERUM 143 MMOL/L (135-148)
[2016-07-02 07:34] LABS: BUN (BLOOD UREA NITROGEN) 38 MG/DL (6-23); GLUCOSE, SERUM 95 MG/DL (60-99)
[2016-07-02 07:48] LABS: INTERNATIONAL NORMAL RATI 1.2 UNITS (-)
[2016-07-02 07:56] LABS: PROTIME (NOT ORD) 14.7 SEC (12.0-14.5)
[2016-07-02 11:54] LABS: HEMATOCRIT 28.3 % (40.0-51.0); HEMOGLOBIN 9.4 g/dL (13.6-17.8)
[2016-07-02 18:10] LABS: HEMOGLOBIN 10.5 g/dL (13.6-17.8)
[2016-07-03 01:31] LABS: HEMATOCRIT 30.9 % (40.0-51.0); HEMOGLOBIN 10.3 g/dL (13.6-17.8)
[2016-07-03 06:07] LABS: INTERNATIONAL NORMAL RATI 1.1 UNITS (-); PROTIME (NOT ORD) 14.1 SEC (12.0-14.5)
[2016-07-03 06:08] LABS: BASOPHILS 0.1 %; BASOPHILS ABSOLUTE 0.01 10/3/uL (0.0-0.16); EOSINOPHILS ABSOLUTE 0.47 10/3/uL (0.0-0.53); HEMATOCRIT 31.2 % (40.0-51.0); HEMOGLOBIN 10.4 g/dL (13.6-17.8); IMMATURE GRANULOCYTES 0.4 %; IMMATURE GRANULOCYTES ABSOLUTE 0.03 10/3/uL (0.0-0.11); LYMPHOCYTES 17.5 %; LYMPHOCYTES ABSOLUTE 1.17 10/3/uL (0.67-4.30); MANUAL DIFF NO %; MEAN CORPUS HGB CONC 33.3 g/dL (32.0-36.0); MEAN CORPUSCULAR HEMOGLOB 31.2 pg (26.0-34.0); MEAN CORPUSCULAR VOLUME 93.7 fL (80-100); MEAN PLATELET VOLUME 10.6 fL (9.2-13.0); MONOCYTES 7.2 %; MONOCYTES ABSOLUTE 0.48 10/3/uL (0.21-1.20); NEUTROPHILS 67.8 %; NEUTROPHILS ABSOLUTE 4.54 10/3/uL (2.02-8.40); PLATELET COUNT 203 10/3/uL (150-400); RBC DISTRIBUTION WIDTH 17.1 % (12.0-16.0); RED CELL COUNT 3.33 10/6/uL (4.7-6.1); WHITE BLOOD CELLS 6.7 10/3/uL (4.5-10.5)
[2016-07-03 06:14] LABS: ALBUMIN 3.1 G/DL (3.5-5.0); CALCIUM, SERUM 8.3 MG/DL (8.5-10.4); CHLORIDE, SERUM 111 MMOL/L (96-112); CO2 (CARBON DIOXIDE) 22 MMOL/L (24-34); GFR AFRICAN AMERICAN 44 ML/MIN (>=60); GFR NON AFRICAN AMERICAN 38 ML/MIN (>=60); GLUCOSE, SERUM 107 MG/DL (60-99); PHOSPHORUS, SERUM 3.1 MG/DL (2.5-4.5); SODIUM, SERUM 141 MMOL/L (135-148)
[2016-07-03 06:15] LABS: BUN (BLOOD UREA NITROGEN) 34 MG/DL (6-23); POTASSIUM, SERUM 5.7 MMOL/L (3.5-5.3)
[2016-07-03 10:25] LABS: BASOPHILS 0.1 %; BASOPHILS ABSOLUTE 0.01 10/3/uL (0.0-0.16); EOSINOPHILS 6.7 %; EOSINOPHILS ABSOLUTE 0.45 10/3/uL (0.0-0.53); HEMOGLOBIN 10.3 g/dL (13.6-17.8); IMMATURE GRANULOCYTES 0.6 %; IMMATURE GRANULOCYTES ABSOLUTE 0.04 10/3/uL (0.0-0.11); LYMPHOCYTES 11.3 %; LYMPHOCYTES ABSOLUTE 0.76 10/3/uL (0.67-4.30); MANUAL DIFF NO %; MEAN CORPUS HGB CONC 33.2 g/dL (32.0-36.0); MEAN CORPUSCULAR HEMOGLOB 31.5 pg (26.0-34.0); MEAN CORPUSCULAR VOLUME 94.8 fL (80-100); MEAN PLATELET VOLUME 10.5 fL (9.2-13.0); MONOCYTES 11.3 %; MONOCYTES ABSOLUTE 0.76 10/3/uL (0.21-1.20); NEUTROPHILS ABSOLUTE 4.68 10/3/uL (2.02-8.40); PLATELET COUNT 189 10/3/uL (150-400); RBC DISTRIBUTION WIDTH 17.1 % (12.0-16.0); RED CELL COUNT 3.27 10/6/uL (4.7-6.1); WHITE BLOOD CELLS 6.7 10/3/uL (4.5-10.5)
[2016-07-03 10:40] LABS: BUN (BLOOD UREA NITROGEN) 32 MG/DL (6-23); CALCIUM, SERUM 8.4 MG/DL (8.5-10.4); CHLORIDE, SERUM 111 MMOL/L (96-112); CO2 (CARBON DIOXIDE) 24 MMOL/L (24-34); CREATININE 1.91 MG/DL (0.70-1.30); GFR AFRICAN AMERICAN 41 ML/MIN (>=60); GFR NON AFRICAN AMERICAN 35 ML/MIN (>=60); GLUCOSE, SERUM 109 MG/DL (60-99); POTASSIUM, SERUM 5.9 MMOL/L (3.5-5.3); SODIUM, SERUM 141 MMOL/L (135-148)
[2016-07-03 13:29] LABS: HEMATOCRIT 30.4 % (40.0-51.0); HEMOGLOBIN 10.1 g/dL (13.6-17.8)
[2016-07-03 14:20] LABS: POTASSIUM, SERUM 5.5 MMOL/L (3.5-5.3)
[2016-07-03 18:01] LABS: HEMATOCRIT 32.3 % (40.0-51.0); HEMOGLOBIN 10.6 g/dL (13.6-17.8)
[2016-07-03 18:14] LABS: POTASSIUM, SERUM 5.4 MMOL/L (3.5-5.3)
[2016-07-03 23:09] LABS: HEMATOCRIT 31.8 % (40.0-51.0); HEMOGLOBIN 10.1 g/dL (13.6-17.8)
[2016-07-04 06:36] LABS: BASOPHILS 0.4 %; BASOPHILS ABSOLUTE 0.03 10/3/uL (0.0-0.16); EOSINOPHILS 5.1 %; EOSINOPHILS ABSOLUTE 0.36 10/3/uL (0.0-0.53); HEMATOCRIT 28.8 % (40.0-51.0); HEMOGLOBIN 9.6 g/dL (13.6-17.8); IMMATURE GRANULOCYTES 0.3 %; IMMATURE GRANULOCYTES ABSOLUTE 0.02 10/3/uL (0.0-0.11); LYMPHOCYTES 15.6 %; MEAN CORPUS HGB CONC 33.3 g/dL (32.0-36.0); MEAN CORPUSCULAR HEMOGLOB 30.7 pg (26.0-34.0); MEAN PLATELET VOLUME 10.6 fL (9.2-13.0); MONOCYTES 12.1 %; MONOCYTES ABSOLUTE 0.85 10/3/uL (0.21-1.20); NEUTROPHILS 66.5 %; NEUTROPHILS ABSOLUTE 4.67 10/3/uL (2.02-8.40); PLATELET COUNT 182 10/3/uL (150-400); RBC DISTRIBUTION WIDTH 17.3 % (12.0-16.0); RED CELL COUNT 3.13 10/6/uL (4.7-6.1)
[2016-07-04 06:44] LABS: MANUAL DIFF NO %
[2016-07-04 06:47] LABS: INTERNATIONAL NORMAL RATI 1.2 UNITS (-); PROTIME (NOT ORD) 15.2 SEC (12.0-14.5)
[2016-07-04 06:54] LABS: ALBUMIN 2.8 G/DL (3.5-5.0); ALKALINE PHOSPHATASE 87 U/L (45-117); CALCIUM, SERUM 8.1 MG/DL (8.5-10.4); CHLORIDE, SERUM 114 MMOL/L (96-112); CO2 (CARBON DIOXIDE) 23 MMOL/L (24-34); CREATININE 2.27 MG/DL (0.70-1.30); DIRECT BILIRUBIN 0.1 MG/DL (0.0-0.4); GFR AFRICAN AMERICAN 33 ML/MIN (>=60); GFR NON AFRICAN AMERICAN 28 ML/MIN (>=60); GLUCOSE, SERUM 94 MG/DL (60-99); INDIRECT BILIRUBIN(NOT ORDER) 0.3 MG/DL (0.1-0.9); POTASSIUM, SERUM 5.3 MMOL/L (3.5-5.3); SGOT(AST) 39 U/L (5-40); SGPT(ALT) 36 U/L (5-65); SODIUM, SERUM 144 MMOL/L (135-148); TOTAL BILIRUBIN 0.4 MG/DL (0-1.2); TOTAL PROTEIN 5.6 G/DL (6.0-8.5)
[2016-07-04 06:55] LABS: BUN (BLOOD UREA NITROGEN) 41 MG/DL (6-23)
[2016-07-04 06:57] LABS: PARTIAL THROMBO TIME 113.6 SEC (22.5-37.2)
[2016-07-05 01:49] LABS: BASOPHILS 0.1 %; BASOPHILS ABSOLUTE 0.01 10/3/uL (0.0-0.16); EOSINOPHILS 6.6 %; EOSINOPHILS ABSOLUTE 0.45 10/3/uL (0.0-0.53); HEMATOCRIT 27.7 % (40.0-51.0); HEMOGLOBIN 8.9 g/dL (13.6-17.8); IMMATURE GRANULOCYTES 0.4 %; IMMATURE GRANULOCYTES ABSOLUTE 0.03 10/3/uL (0.0-0.11); LYMPHOCYTES ABSOLUTE 1.15 10/3/uL (0.67-4.30); MEAN CORPUS HGB CONC 32.1 g/dL (32.0-36.0); MEAN CORPUSCULAR HEMOGLOB 30.5 pg (26.0-34.0); MEAN PLATELET VOLUME 10.6 fL (9.2-13.0); MONOCYTES 11.2 %; MONOCYTES ABSOLUTE 0.76 10/3/uL (0.21-1.20); NEUTROPHILS 64.7 %; NEUTROPHILS ABSOLUTE 4.38 10/3/uL (2.02-8.40); PLATELET COUNT 197 10/3/uL (150-400); RBC DISTRIBUTION WIDTH 17.3 % (12.0-16.0); RED CELL COUNT 2.92 10/6/uL (4.7-6.1); WHITE BLOOD CELLS 6.8 10/3/uL (4.5-10.5)
[2016-07-05 01:50] LABS: MANUAL DIFF NO %; MEAN CORPUSCULAR VOLUME 94.9 fL (80-100)
[2016-07-05 02:02] LABS: BUN (BLOOD UREA NITROGEN) 44 MG/DL (6-23); CALCIUM, SERUM 7.6 MG/DL (8.5-10.4); CHLORIDE, SERUM 114 MMOL/L (96-112); CO2 (CARBON DIOXIDE) 24 MMOL/L (24-34); CREATININE 2.37 MG/DL (0.70-1.30); GFR AFRICAN AMERICAN 31 ML/MIN (>=60); GFR NON AFRICAN AMERICAN 27 ML/MIN (>=60); GLUCOSE, SERUM 89 MG/DL (60-99); POTASSIUM, SERUM 5.1 MMOL/L (3.5-5.3); SODIUM, SERUM 145 MMOL/L (135-148)
[2016-07-05 02:36] LABS: INTERNATIONAL NORMAL RATI 1.1 UNITS (-); PROTIME (NOT ORD) 14.5 SEC (12.0-14.5)
[2016-07-06 02:32] LABS: BASOPHILS 0.3 %; BASOPHILS ABSOLUTE 0.02 10/3/uL (0.0-0.16); EOSINOPHILS 6.7 %; EOSINOPHILS ABSOLUTE 0.43 10/3/uL (0.0-0.53); HEMOGLOBIN 9.4 g/dL (13.6-17.8); IMMATURE GRANULOCYTES 0.5 %; IMMATURE GRANULOCYTES ABSOLUTE 0.03 10/3/uL (0.0-0.11); LYMPHOCYTES ABSOLUTE 1.02 10/3/uL (0.67-4.30); MEAN CORPUS HGB CONC 32.4 g/dL (32.0-36.0); MEAN CORPUSCULAR VOLUME 95.7 fL (80-100); MEAN PLATELET VOLUME 10.3 fL (9.2-13.0); MONOCYTES 8.9 %; MONOCYTES ABSOLUTE 0.57 10/3/uL (0.21-1.20); NEUTROPHILS 67.6 %; NEUTROPHILS ABSOLUTE 4.31 10/3/uL (2.02-8.40); PLATELET COUNT 186 10/3/uL (150-400); RBC DISTRIBUTION WIDTH 16.9 % (12.0-16.0); RED CELL COUNT 3.03 10/6/uL (4.7-6.1); WHITE BLOOD CELLS 6.4 10/3/uL (4.5-10.5)
[2016-07-06 02:38] LABS: MANUAL DIFF NO %
[2016-07-06 02:44] LABS: BUN (BLOOD UREA NITROGEN) 46 MG/DL (6-23); CALCIUM, SERUM 7.3 MG/DL (8.5-10.4); CHLORIDE, SERUM 113 MMOL/L (96-112); CO2 (CARBON DIOXIDE) 22 MMOL/L (24-34); CREATININE 2.07 MG/DL (0.70-1.30); GFR AFRICAN AMERICAN 37 ML/MIN (>=60); GFR NON AFRICAN AMERICAN 32 ML/MIN (>=60); POTASSIUM, SERUM 4.9 MMOL/L (3.5-5.3); SODIUM, SERUM 142 MMOL/L (135-148)
[2016-07-06 02:47] LABS: GLUCOSE, SERUM 140 MG/DL (60-99)
[2016-07-06 03:06] LABS: INTERNATIONAL NORMAL RATI 1.1 UNITS (-); PROTIME (NOT ORD) 14.4 SEC (12.0-14.5)
[2016-07-06 03:07] LABS: PARTIAL THROMBO TIME 63.7 SEC (22.5-37.2)
[2016-07-07 08:20] LABS: BASOPHILS 0.1 %; BASOPHILS ABSOLUTE 0.01 10/3/uL (0.0-0.16); EOSINOPHILS 5.2 %; EOSINOPHILS ABSOLUTE 0.48 10/3/uL (0.0-0.53); HEMATOCRIT 27.4 % (40.0-51.0); HEMOGLOBIN 8.7 g/dL (13.6-17.8); IMMATURE GRANULOCYTES 0.3 %; IMMATURE GRANULOCYTES ABSOLUTE 0.03 10/3/uL (0.0-0.11); LYMPHOCYTES 9.8 %; MEAN CORPUS HGB CONC 31.8 g/dL (32.0-36.0); MEAN CORPUSCULAR HEMOGLOB 30.3 pg (26.0-34.0); MEAN CORPUSCULAR VOLUME 95.5 fL (80-100); MEAN PLATELET VOLUME 10.4 fL (9.2-13.0); MONOCYTES 10.2 %; MONOCYTES ABSOLUTE 0.94 10/3/uL (0.21-1.20); NEUTROPHILS 74.4 %; NEUTROPHILS ABSOLUTE 6.87 10/3/uL (2.02-8.40); PLATELET COUNT 199 10/3/uL (150-400); RBC DISTRIBUTION WIDTH 17.6 % (12.0-16.0); RED CELL COUNT 2.87 10/6/uL (4.7-6.1)
[2016-07-07 08:22] LABS: MANUAL DIFF NO %; WHITE BLOOD CELLS 9.2 10/3/uL (4.5-10.5)
[2016-07-07 08:28] LABS: INTERNATIONAL NORMAL RATI 1.3 UNITS (-); PROTIME (NOT ORD) 15.8 SEC (12.0-14.5)
[2016-07-07 08:30] LABS: PARTIAL THROMBO TIME 88.8 SEC (22.5-37.2)
[2016-07-07 08:33] LABS: BUN (BLOOD UREA NITROGEN) 45 MG/DL (6-23); CALCIUM, SERUM 8.2 MG/DL (8.5-10.4); CHLORIDE, SERUM 115 MMOL/L (96-112); CO2 (CARBON DIOXIDE) 20 MMOL/L (24-34); CREATININE 2.04 MG/DL (0.70-1.30); GFR AFRICAN AMERICAN 37 ML/MIN (>=60); GFR NON AFRICAN AMERICAN 32 ML/MIN (>=60); POTASSIUM, SERUM 5.2 MMOL/L (3.5-5.3); SODIUM, SERUM 143 MMOL/L (135-148)
[2016-07-07 08:36] LABS: GLUCOSE, SERUM 87 MG/DL (60-99)
[2016-07-08 07:00] LABS: INTERNATIONAL NORMAL RATI 1.5 UNITS (-); PROTIME (NOT ORD) 18.3 SEC (12.0-14.5)
[2016-07-08 10:29] LABS: BASOPHILS 0.2 %; BASOPHILS ABSOLUTE 0.01 10/3/uL (0.0-0.16); EOSINOPHILS 8.1 %; EOSINOPHILS ABSOLUTE 0.46 10/3/uL (0.0-0.53); HEMATOCRIT 26.1 % (40.0-51.0); HEMOGLOBIN 8.4 g/dL (13.6-17.8); IMMATURE GRANULOCYTES 0.4 %; IMMATURE GRANULOCYTES ABSOLUTE 0.02 10/3/uL (0.0-0.11); LYMPHOCYTES 15.8 %; MEAN CORPUS HGB CONC 32.2 g/dL (32.0-36.0); MEAN CORPUSCULAR HEMOGLOB 31.3 pg (26.0-34.0); MEAN CORPUSCULAR VOLUME 97.4 fL (80-100); MONOCYTES 9.3 %; MONOCYTES ABSOLUTE 0.53 10/3/uL (0.21-1.20); NEUTROPHILS 66.2 %; NEUTROPHILS ABSOLUTE 3.76 10/3/uL (2.02-8.40); PLATELET COUNT 196 10/3/uL (150-400); RED CELL COUNT 2.68 10/6/uL (4.7-6.1); WHITE BLOOD CELLS 5.7 10/3/uL (4.5-10.5)
[2016-07-08 10:30] LABS: MANUAL DIFF NO %
[2016-07-08 10:41] LABS: BUN (BLOOD UREA NITROGEN) 46 MG/DL (6-23); CALCIUM, SERUM 8.1 MG/DL (8.5-10.4); CHLORIDE, SERUM 115 MMOL/L (96-112); CO2 (CARBON DIOXIDE) 22 MMOL/L (24-34); CREATININE 2.09 MG/DL (0.70-1.30); GFR AFRICAN AMERICAN 36 ML/MIN (>=60); GFR NON AFRICAN AMERICAN 31 ML/MIN (>=60); GLUCOSE, SERUM 98 MG/DL (60-99); POTASSIUM, SERUM 5.1 MMOL/L (3.5-5.3); SODIUM, SERUM 144 MMOL/L (135-148)
[2016-07-08] MEDS ORDERED: COUMADIN PO ×3 (11:28→11:30)
[2016-07-17] MEDS ORDERED: DORYX100 MG PO (14:59)
[2017-01-21] MEDS ORDERED: L20 PO (21:31)
[2017-01-21] MEDS ORDERED: LIPITOR40 PO (21:32)
[2017-01-21] MEDS ORDERED: NORCO1 TAB PO (21:32)
[2017-01-21] MEDS ORDERED: C5 PO (21:33)
[2017-01-21] MEDS ORDERED: ROCALTROL 0.0.25 MCG PO (21:34)
[2017-01-21] MEDS ORDERED: COUMADIN6 MG PO (21:34)
[2017-01-21] MEDS ORDERED: C1 PO (21:34)
[2017-01-21] MEDS ORDERED: ZAROX2.5B PO (21:35)
[2017-01-21] MEDS ORDERED: ZANAFLEX 4 MG TA4 MG PO (21:36)
[2017-01-21] MEDS ORDERED: Z100 PO (21:36)
[2017-01-21] MEDS ORDERED: NORV5 PO (21:36)
[2017-01-21] MEDS ORDERED: LYRICA75 PO (21:36)
[2017-01-21] MEDS ORDERED: VITD PO (21:37)
[2017-01-21] MEDS ORDERED: AMB10 PO (21:37)
[2017-01-21] MEDS ORDERED: CYMBALTA60 PO (21:37)
[2017-01-21] MEDS ORDERED: MOVANTIK12.5 MG PO (21:38)
[2017-01-21] MEDS ORDERED: PROTONIX PO (21:38)
[2017-01-21] MEDS ORDERED: SYN.05 PO (21:38)
[2017-01-21] MEDS ORDERED: COREG6 PO (21:39)
[2017-01-21] MEDS ORDERED: NITROSTAT0.4 MG SL (21:40)
[2017-01-21] MEDS ORDERED: CARTIA XT120 MG/24 PO (21:40)
[2017-01-21] MEDS ORDERED: 8 HOUR650 MG PO (21:41)
[2017-01-21] MEDS ORDERED: ASAB PO (21:42)
[2017-01-21] MEDS ORDERED: CYANO1000T PO (21:42)
[2017-01-21] MEDS ORDERED: MULTIVIT/MIN PO (21:43)
[2017-01-21] MEDS ORDERED: FISH-EPA1000 MG PO (21:43)
[2017-01-21] MEDS ORDERED: FERROUS SULF325 M1 PO (21:43)
[2017-01-21] MEDS ORDERED: BACTROCR TOP (21:44)
[2017-01-29] MEDS ORDERED: PHOSLO PO (15:32)
[2017-02-02] MEDS ORDERED: COUMADIN4 MG PO (13:52)
[2017-02-03] MEDS ORDERED: AMB10 PO (12:04)
== END 2016-07-08 16:34 | disposition home or self-care (01) | DRG 377 ==
LOC: ER 16:38 → ER/OF 20:54 → IMCU 06-28 02:00 → 6NO 06-30 20:48 → CCU 07-01 15:06 → 2SO 07-02 19:58
PROVIDERS: Emergency Medicine; Hospitalist; Internal Medicine; Internal Medicine Cardiovascular Disease; Internal Medicine Critical Care Medicine; Internal Medicine Gastroenterology; Nurse Practitioner Family
PROC: 30233K1 Transfusion of Nonautologous Frozen Plasma into Peripheral Vein, Percutaneous Approach (ICD-10-PCS; 2016-06-27)
PROC: 30233N1 Transfusion of Nonautologous Red Blood Cells into Peripheral Vein, Percutaneous Approach (ICD-10-PCS; 2016-06-28)
PROC: 0DJ08ZZ Inspection of Upper Intestinal Tract, Via Natural or Artificial Opening Endoscopic (ICD-10-PCS; principal; 2016-06-28 15:23)
PROC: 0DJD8ZZ Inspection of Lower Intestinal Tract, Via Natural or Artificial Opening Endoscopic (ICD-10-PCS; 2016-06-29)
PROC: 05HM33Z Insertion of Infusion Device into Right Internal Jugular Vein, Percutaneous Approach (ICD-10-PCS; 2016-07-01)
PROC: 0DJD8ZZ Inspection of Lower Intestinal Tract, Via Natural or Artificial Opening Endoscopic (ICD-10-PCS; 2016-07-03)
DX: K57.91 Diverticulosis of intestine, part unspecified, without perforation or abscess with bleeding (principal); R57.8 Other shock; N17.9 Acute kidney failure, unspecified; D68.2 Hereditary deficiency of other clotting factors; E11.42 Type 2 diabetes mellitus with diabetic polyneuropathy; D62 Acute posthemorrhagic anemia; N18.4 Chronic kidney disease, stage 4 (severe); I48.0 Paroxysmal atrial fibrillation; I95.89 Other hypotension; I12.9 Hypertensive chronic kidney disease with stage 1 through stage 4 chronic kidney disease, or unspecified chronic kidney disease; E86.0 Dehydration; K56.0 Paralytic ileus; N39.0 Urinary tract infection, site not specified; E66.01 Morbid (severe) obesity due to excess calories; R79.89 Other specified abnormal findings of blood chemistry; K62.5 Hemorrhage of anus and rectum; E78.5 Hyperlipidemia, unspecified; G89.29 Other chronic pain; M54.9 Dorsalgia, unspecified; K64.0 First degree hemorrhoids; K44.9 Diaphragmatic hernia without obstruction or gangrene; Z95.1 Presence of aortocoronary bypass graft; Z95.2 Presence of prosthetic heart valve; Z98.84 Bariatric surgery status; Z95.0 Presence of cardiac pacemaker; Z86.010 Personal history of colon polyps; Z87.891 Personal history of nicotine dependence; Z98.890 Other specified postprocedural states; Z82.49 Family history of ischemic heart disease and other diseases of the circulatory system; Z79.01 Long term (current) use of anticoagulants; Z79.4 Long term (current) use of insulin
CPT/HCPCS: 36415; 36569; 71010; 78278; 80048; 80053; 80069; 80076; 82962; 83036; 83735; 83880; 84132; 85014; 85018; 85025; 85610; 85730; 86850; 86900; 86901; 86920; 87641; 93005; 97161-GP; 97165-GO; 99285; A9270-GY; A9560; C1751; C9113; G8978-CH-GP; G8979-CH-GP; G8980-CH-GP; G8987-CH-GO; G8988-CH-GO; G8989-CH-GO; J2405; P9016; P9059

== ENCOUNTER 2016-09-12 12:19 | Inpatient (IN) | payer MEDICARE, OTHER ==
--- NOTE | ~2016-09-12 | DS ---
Discharge Summary [facility] [address] [place]. [address] NAME: SNEHA BRICEÑO : 47 STATUS : DIS IN PAT#: [id number] AGE: 71 ADM/REG DATE : 09/12/16 MR#: [id number] REPORT SERV DATE: 09/17/16 DICTATED BY: DATE: REPORT STATUS : Draft TRANSCRIBED BY: MODL DATE: 09/17/16 ADMISSION DATE: 09/12/2016 DISCHARGE DATE: 09/17/2016 [facility] ATTENDING: Dr. Brit Mendez and Dr. Herbert Sutton. CONSULTANTS: Included Dr. Jarred Rutherford of Nephrology, Dr. Nguyễn of the [facility], and Tracy Rutherford, nurse practitioner for Orthopedics. DISCHARGE DIAGNOSES: 1. Acute congestive heart failure exacerbation-mixed systolic and diastolic. 2. Atypical chest pain-troponin negative. 3. Hypertension-uncontrolled at admission. Multiple medication adjustments made. Improved at discharge. 4. Acute kidney injury on chronic kidney disease, stage 3-4. BHAVESH inhibitor held at discharge. For outpatient nephrology followup. 5. Right lower extremity cellulitis, improved and resolved after 14 days of antibiotic therapy. 6. Suspect small component of ongoing stasis dermatitis. 7. Osteoarthritis of bilateral knees right greater than left, for outpatient orthopedic followup. 8. Acute gout flare-improving with steroids. 9. History of mechanical aortic valve, on chronic Coumadin therapy with discharge INR 2.3. 10.Paroxysmal atrial fibrillation and history of pacemaker. 11.Diet-controlled diabetes mellitus type 2. 12.History of gastric bypass surgery and intentional weight loss. 13.Right lower extremity hematoma versus Byrd's cyst. 14.Hypothyroidism. 15.Hyperlipidemia. 16.Mild pulmonary hypertension. IMAGIN. PA lateral chest x-ray, 09/12, left pleural effusion and left basilar atelectasis. 2. Portable chest x-ray, 09/13, developing pulmonary venous hypertension with mild interstitial edema. 3. Bilateral lower extremity venous Doppler ultrasounds, 09/13, negative for right or left DVT. Proximal right calf collection medially measuring 1 x 2.5 cm. Finding may represent sequelae from hematoma or Byrd cyst. No significant surrounding hyperemia to suggest infection. 4. Renal artery ultrasound shows limited examination with obscuration of bilateral renal artery origins, bilateral proximal renal arteries as well as the mid left renal artery by bowel gas. No definite stenosis. No elevation in the renal artery acceleration times to suggest underlying renal artery stenosis. Renal veins are patent bilaterally. 5. Echocardiogram, 09/13, shows normal left ventricular size and systolic function with Discharge Summary [address] [place]. [address] NAME: SNEHA BRICEÑO : 47 STATUS : DIS IN PAT#: [id number] AGE: 71 ADM/REG DATE : 09/12/16 MR#: [id number] REPORT SERV DATE: 09/17/16 DICTATED BY: DATE: REPORT STATUS : Draft TRANSCRIBED BY: MODL DATE: 09/17/16 estimated ejection fraction 50%-55%. Mild concentric LVH. Mild right ventricular enlargement with decreased systolic function. Borderline normal left atrial size. Mild pulmonary hypertension with pulmonary artery pressure of 43. Stable mechanical aortic valve prosthesis with mean pressure gradient of 9. 6. Plain films of the left knee, 09/15, shows mild degenerative change. 7. Plain films of the right knee, 09/15, shows degenerative changes with moderately severe narrowing of the medial joint. PERTINENT LABS: Recently 2.8, now presently 2.1. Uric acid level 7.1. BNP elevated at 1067. Lactate 0.8. White blood cell count normal this admission, hemoglobin ranging from 10.9-11.7, platelets normal. INR 2.3 at discharge. BRIEF HISTORY: For full details please see the previously dictated history of present illness by Brit Mendez. This is a 71-year-old white male patient presented to the emergency department with chief complaint of chest pain in the center of his chest, which started three to four days prior. The patient also endorsed increased difficulty breathing, progressive with exertional dyspnea and eventually, resting dyspnea. Other complaints in the ER included headache, nausea. The patient was admitted to the Hospitalist Service for evaluation of chest pain, given multiple cardiac risk factors. Evaluation in the emergency department also revealed elevated BNP with chest x-ray suggestive of possible volume overload, so he was admitted for management of acute exacerbation of heart failure. His blood pressure was found to be elevated in the emergency department, as well, in the 275/125 range, and he was noted to have right lower extremity cellulitis with progression of symptoms despite outpatient Keflex. HOSPITAL COURSE: For full details please see the interim discharge summary dictated by Dr. Brit Mendez for dates of service 09/12 through 09/16. I assumed care of the patient on 09/17, at which point, he reported feeling better. His pain in his feet was improving in response to the initiation of steroids on the day prior, and the use of IV pain medications. He reported feeling a little bit weak that morning, but as the day went on, he felt that he was at his baseline. He wanted to be discharged without a physical therapy evaluation, but was amenable to home health and home physical therapy instead. The laboratory courier and congestive heart failure nurse educator met with the patient and his to educate them on the details of a cardiac, 1500 mL fluid restricted, renal diet. The patient was re-evaluated by nurse practitioner from Orthopedics and felt appropriate for discharge to home without a steroid injection at present, as Dr. White will follow the patient outpatient and determine if this is needed. Thus, the patient is being discharged home in the care of his supportive with no specific activity restrictions. Diet should be cardiac, renal, 1500 mL fluid restricted. He was counseled by the pharmacist on his medication changes at the time of discharge, and prescriptions were provided for 90-day supplies at his request with no refill. He has multiple followup appointments. He will need to see Dr. Giovani Gómez within seven days for hospital followup. Also to follow up with Dr. Resendiz or his nurse Discharge Summary [address] [place]. [address] NAME: SNEHA BRICEÑO : 47 STATUS : DIS IN PAT#: [id number] AGE: 71 ADM/REG DATE : 09/12/16 MR#: [id number] REPORT SERV DATE: 09/17/16 DICTATED BY: DATE: REPORT STATUS : Draft TRANSCRIBED BY: MODL DATE: 09/17/16 practitioner within four to six weeks regarding congestive heart failure. He will follow up with Dr. White in two weeks' time, and should continue his PT/INR monitoring per prior regimen. He is instructed to weigh himself daily and to check his blood pressure daily and keep a log of weights and blood pressure values for his followup appointments. DISCHARGE MEDICATIONS: Include, 1. Allopurinol 100 mg p.o. daily. 2. Amlodipine 5 mg p.o. daily-prescription provided for a 90-day supply. 3. Aspirin 325 mg p.o. daily. 4. Lipitor 40 mg p.o. at bedtime. 5. Calcitriol 0.25 mcg p.o. daily. 6. Carvedilol 12.5 mg p.o. twice a day-prescription provided for 90 days. Increased from prior dose of 6.25 mg p.o. twice a day. 7. Vitamin B12 1000 mcg p.o. daily. 8. Colace 100 mg p.o. at bedtime. 9. Cymbalta 60 mg p.o. daily. 10.Iron sulfate 325 mg p.o. daily. 11.Lasix 80 mg p.o. twice a day at 9 a.m. and 4 p.m. 90-day supply provided. Increased from prior dose of Lasix 80 mg p.o. daily. 12.Levothyroxine 50 mcg p.o. before meals, breakfast. 13.Multivitamin one tablet p.o. daily. 14.Hydrocodone/acetaminophen 10/325 mg one tablet p.o. four times a day. 15.Lyrica 75 mg p.o. twice a day. 16.Zanaflex 4 mg p.o. at bedtime. 17.Coumadin 8.5 mg p.o. daily. 18.Ambien 10 mg p.o. at bedtime. 19.Hydralazine 25 mg p.o. every eight hours-a 90-day supply provided. 20.Bactroban cream applied to sores on arms twice a day as needed. 21.Vitamin D 50,000 international units p.o. on . 22.Fish oil 1000 mg p.o. at bedtime. 23.Medrol dose pack-one dispensed. Take as directed for gout flare. His lisinopril from home was discontinued due to renal dysfunction. 40 minutes was spent in completion of the discharge including coordination of the plan with the patient, and multiple specialists. PEBBLES/TRACE Herbert Sutton M.D. / [id number] Discharge Summary [facility] [address] [address] NAME: SNEHA BRICEÑO : 47 STATUS : DIS IN PAT#: [id number] AGE: 71 ADM/REG DATE : 09/12/16 MR#: [id number] REPORT SERV DATE: 09/17/16 DICTATED BY: DATE: REPORT STATUS : Draft TRANSCRIBED BY: MODL DATE: 09/17/16 CC: Sherif Lopez M.D. Allen E Atchley, M.D. [facility] Suleman White M.D.
--- NOTE | ~2016-09-12 | CN ---
Consultation Report [facility] [address] [place]. [address] NAME: SNEHA ELIZALDE : 47 STATUS : ADM IN PAT#: [id number] AGE: 71 ADM/REG DATE : 09/12/16 MR#: [id number] REPORT SERV DATE: 09/13/16 DICTATED BY: JANENE MERLOS DATE: 09/13/16 REPORT STATUS : Draft TRANSCRIBED BY: MODL DATE: 09/13/16 NEPHROLOGY HISTORY AND PHYSICAL DATE OF CONSULTATION: 09/13/2016 REASON FOR CONSULT: Chronic kidney disease with volume overload. HISTORY OF PRESENT ILLNESS: Mr. Elizalde is a pleasant 71-year-old white male, who has a history of chronic kidney disease, followed in the office of [facility] by Dr. Akbar. Baseline creatinine has been anywhere between 2.1 and 2.9 since 08/2015. He was most recently seen earlier this week on 09/10/2016 when his creatinine was 2.1 and urine protein-creatinine was 0.354. He was hospitalized for quite some time in 07/2016 with GI bleeding. Since that time, he has gained approximately 45 pounds. He was admitted through the ER yesterday with orthopnea, dyspnea, PND, and edema. Lower extremity ultrasound has shown no DVT. Chest x-ray shows bilateral interstitial edema, and echo has shown an EF of 50% with normal functioning AVR, LVH, and RVSP of 43 mmHg. BNP today is 883 and creatinine is 2.1. Interestingly, he has been drinking eight 16-ounce bottles of water for the last several weeks. This is a total of 144 mL of water intake daily at the direction of his outpatient rehab aide. PAST MEDICAL HISTORY: 1. CKD, stage 3. Baseline creatinine 2.1 to 2.9. 2. Atrial fibrillation, on chronic Coumadin with pacemaker. 3. History of AVR and CABG, 2010, EF 55%. 4. Gout. 5. Proteinuria, 0.354. 6. Pulmonary hypertension, RVSP 43. 7. Hypertension, on BHAVESH inhibitor. 8. Hyperlipidemia. 9. History of DVTs. 10.Hypothyroidism. 11.GI bleed as per HPI, 07/2016. MEDICATIONS: Allopurinol, aspirin, Lipitor, Rocaltrol, Coreg, Keflex, vitamin B12, Cymbalta, vitamin D, iron, Lasix 80 mg daily, Lortab p.r.n., levothyroxine 50 mcg daily, lisinopril 20 mg daily, multivitamin, fish oil, Lyrica 75 mg b.i.d., Zanaflex, Coumadin 8.5 mg at bedtime, and Ambien. FAMILY HISTORY: Noncontributory to current admission. SOCIAL HISTORY: Lifelong nonsmoker. He is , retired, lives in [place], [place]. Consultation Report [address] [place]. [address] NAME: SNEHA ELIZALDE : 47 STATUS : ADM IN [facility]#: [id number] AGE: 71 ADM/REG DATE : 09/12/16 MR#: [id number] REPORT SERV DATE: 09/13/16 DICTATED BY: JANENE MERLOS DATE: 09/13/16 REPORT STATUS : Draft TRANSCRIBED BY: TRACE DATE: 09/13/16 REVIEW OF SYSTEMS: Please see HPI for pertinent details. No recent symptoms reported. PHYSICAL EXAMINATION: VITAL SIGNS: Temperature 97.5, pulse 80, respirations 18, blood pressure 141/62, 92% sat on room air. GENERAL: He is a pleasant, white male. Awake, alert, oriented, and cooperative with the exam. He is a good historian. No distress on room air. No family in the room. HEENT: Sclerae without icterus. Conjunctivae not injected. Oropharynx is clear. NECK: JVD 8-10 cm. LUNGS: He has diffuse bilateral rhonchi and faint crackles at the bases. No dyspnea or tachypnea. HEART: Regular rate and rhythm with pacemaker, 2/6 murmur. No rub. ABDOMEN: Obese, soft, nontender, nondistended. Bowel sounds present throughout. Positive HJR. EXTREMITIES: 3 to 4+ pitting bilateral lower extremity edema to the knees. NEURO: Nonfocal. SKIN: Shows diffuse excoriations without rash. : Deferred. There is no Cervantes catheter in place. PSYCH: Mood and affect are appropriate. LABORATORY DATA: Sodium 145, potassium 4.1, BUN 54, creatinine 2.1. GFR 31. Calcium 8.9, magnesium 2.7. Troponin was normal in the ER. White count 5500. INR 1.7. Hemoglobin 11.4, platelets 250,000. ASSESSMENT AND PLAN: Mr. Elizalde has chronic kidney disease, baseline creatinine 2.1 to 2.9, aortic valve replacement, pacemaker, atrial fibrillation, on Coumadin, previous bypass surgery, hypertension, history of gastrointestinal bleed, presents with overload and edema. BHAVESH inhibitor is on hold per the primary service. Continue IV diuresis for now. Place on p.o. fluid restriction. Check renal artery Doppler ultrasound to evaluate for possibility of flash pulmonary edema. His systolic blood pressure was 257 on arrival to the emergency room yesterday. As far as his edema, likely multifactorial related to his water intake in combination with amlodipine, hydralazine, and Lyrica ?. Continue IV diuresis and watch for response. We will decrease the Norvasc dose by half and follow closely. FILIPPO/TRACE Janene Merlos M.D. / [id number] Consultation Report [address] [address] NAME: SNEHA ELIZALDE : 47 STATUS : ADM IN PAT#: [id number] AGE: 71 ADM/REG DATE : 09/12/16 MR#: [id number] REPORT SERV DATE: 09/13/16 DICTATED BY: JANENE MERLOS DATE: 09/13/16 REPORT STATUS : Draft TRANSCRIBED BY: TRACE DATE: 09/13/16 CC: Sherif Nava M.D. Rohit Gupta, M.D.
--- NOTE | ~2016-09-12 | IDS ---
Interim Discharge Summary [facility] [address] [place]. [address] NAME: SNEHA BRICEÑO : 47 STATUS : ADM IN PAT#: [id number] AGE: 71 ADM/REG DATE : 09/12/16 MR#: [id number] REPORT SERV DATE: 09/17/16 DICTATED BY: YANI CORDOVA DATE: 09/16/16 REPORT STATUS : Draft TRANSCRIBED BY: MODL DATE: 09/16/16 ADMISSION DATE: 09/12/2016 DISCHARGE DATE: DIAGNOSES: So far include the followin. Acute exacerbation of systolic and diastolic heart failure-this has resolved. 2. Chest pain with negative troponin-this has resolved. Dr. Resendiz is the patient's mail censor and no further workup for this chest pain is ongoing as this has completely resolved. 3. Chronic congestive heart failure including systolic and diastolic heart failure but mainly diastolic heart dysfunction as his EF is about 50% to 55%. 4. Severe hypertension which is controlled now finally. 5. Acute kidney injury on chronic kidney disease, stage 3 to stage 4 which is followed by Dr. Anthony Akbar. For now, Dr. Jarred Rutherford, is consulting. 6. Right lower extremity cellulitis this has resolved with antibiotics and the patient continues to be on IV Ancef for this. 7. The patient with paroxysmal atrial fibrillation and mechanical aortic valve for which patient has to be on Coumadin and no other anticoagulants. The patient is very knowledgeable with his Coumadin use and finally his INR has become therapeutic and is 2.4 today. Hence today his IV heparin is being discontinued, and he will be kept on his home dose of Coumadin which is 8.5 mg p.o. daily which is started today. The patient was almost discharge today on his regular home medications with adjustments in his blood pressure pills; however, he complained of severe pain in both his feet from apparently gouty attack according to patient. He also complained of severe pain in his right knee. Since he was unable to even stand because of this pain, I osvaldo a serum uric acid on him, started him on prednisone 25 mg a day, tapering down, hopefully he will be tapered down to 5 mg within the next five days and stopped. I also continued his allopurinol and give him medications for pain control. With this, his pain seems to be a little better. The patient had requested an orthopedic consultation through Dr. Resendiz. Dr. Resendiz consulted Orthopedic for his right knee osteoarthritis which is fairly significant and severe. Orthopedic has seen him, and the patient may be a candidate for intra-articular steroid injection in his right knee. If orthopedic surgeon decides to do this either today or tomorrow, the patient can go on home within the next day or two as he is already therapeutic on his Coumadin. His blood pressure control is difficult and very precarious, so ideally, he does well with the current regimen of medications that I have him on, so please send him home on the same regimen. This patient's care will be taken over by my partner tomorrow on 09/17/2016. JASMINE/TRACE Yani Cordova M.D. Interim Discharge Summary [address] [address] NAME: SNEHA BRICEÑO : 47 STATUS : ADM IN PAT#: [id number] AGE: 71 ADM/REG DATE : 09/12/16 MR#: [id number] REPORT SERV DATE: 09/17/16 DICTATED BY: YANI CORDOVA DATE: 09/16/16 REPORT STATUS : Draft TRANSCRIBED BY: TRACE DATE: 09/16/16 / [id number] CC: Sherif Cabrera MD
--- NOTE | ~2016-09-12 | HP ---
History And Physical [id number] [place]. [address] NAME: SNEHA ELIZALDE : 47 STATUS : ADM IN [facility]#: [id number] AGE: 71 ADM/REG DATE : 09/12/16 MR#: [id number] REPORT SERV DATE: 09/12/16 DICTATED BY: YANI MENDEZ DATE: 09/12/16 REPORT STATUS : Draft TRANSCRIBED BY: MODL DATE: 09/12/16 DATE OF ADMISSION: 09/12/2016 HISTORH OF PRESENT ILLNESS: Mr. Elizalde is a 71-year-old white male patient, who came in today because of chest pressure/atypical chest pain in the center of the chest that started a few days ago, about 3 to 4 days ago and has not let up according to the patient. In addition to this, the patient has also been having increasing difficulty breathing for the last week and a half to two. This has been progressively getting worse and in the last day or two, it has been extremely difficult for the patient even to walk from his bed to the bathroom without getting short of breath. This scared him and he decided to come into the ER. He does complain of a headache right now and some nausea, but there is no vomiting, there is no other symptoms whatsoever other than the chest pressure in the center of the chest and increasing difficulty breathing. The patient has an extensive cardiac history, which will be outlined below. REVIEW OF SYSTEMS: Essentially is negative for any other symptoms right now. Negative for difficulty swallowing, vomiting, hematuria, blood in stool, abdominal pain, any other issues. The patient, however, says that his right leg also hurts because recently he has fell several times and has had bruises and hematomas (he is on Coumadin for anticoagulation) in the backs of his legs and knees. The patient also says that his right lower extremity has been swollen and red, and his primary care physician started him on Keflex diagnosing this as early cellulitis in the right lower extremity. So, the patient does complain of right leg pain also. His legs have also been swelling quite a bit in the last few days. The patient, however, says that he keeps some swelling in both legs all the time. PAST MEDICAL HISTORY: Significant for the following cardiac history. The patient does have chronic/paroxysmal atrial fibrillation and also has a history of pacemaker placement for sick sinus syndrome. The patient also has a mechanical aortic valve and has to be on anticoagulation with Coumadin with a goal therapeutic INR of 2.5 to 3.5. The patient is fairly compliant with this. Dr. Resendiz is his financial sales manager. The patient also has a diagnosis of chronic congestive heart failure. At this time, I am unable to gather information regarding his ejection fraction. Regarding other problems, the patient also has chronic kidney disease, stage III to IV, which is being followed by Dr. Anthony Akbar. The patient used to have diabetes mellitus, which is to be diet controlled, but now he says that is cured since he has had a gastric bypass surgery and has lost several 100 pounds. For details, please see multiple hospitalizations and multiple admissions in the past including my own discharge summary, H and Ps etc. History And Physical [address] [address] NAME: SNEHA ELIZALDE : 47 STATUS : ADM IN [facility]#: [id number] AGE: 71 ADM/REG DATE : 09/12/16 MR#: [id number] REPORT SERV DATE: 09/12/16 DICTATED BY: YANI MENDEZ DATE: 09/12/16 REPORT STATUS : Draft TRANSCRIBED BY: TRACE DATE: 09/12/16 SOCIAL HISTORY: The patient does not smoke. He denies any alcohol use, denies any illicit drug use. The patient is and lives with . FAMILY HISTORY: Please note previous H and Ps. Chronic medications at home right now include the following ALLERGIES: THE PATIENT'S ALLERGIES INCLUDE THE FOLLOWING. THE PATIENT IS ALLERGIC TO IODINE AND IODINE-CONTAINING PRODUCTS. HOME MEDICATIONS: Include Lipitor 40 mg once a day, Rocaltrol 0.25 mcg once a day, Coreg 6.25 mg p.o. b.i.d., which was recently reduced to the current dose. Cymbalta 60 mg once a day, Lasix 80 mg once a day, [place] 10/325 one p.o. four times a day, levothyroxine 50 mcg once a day, Lyrica 75 mg p.o. b.i.d., Zanaflex 4 mg p.o. at bedtime, Coumadin 8.5 mg p.o. daily, Ambien 10 mg p.o. at bedtime, Colace 100 mg p.o. at bedtime, ferrous sulfate 325 mg once a day, Keflex right now that has been started recently and started on 09/06/2016, which the patient is currently taking, Zestril 20 mg once a day, aspirin 325 mg once a day, and allopurinol 100 mg once a day. PHYSICAL EXAMINATION: GENERAL: On examination, the patient is alert, oriented, able to give his history himself and appears fairly comfortable at this time. The patient is sitting up to breathe, however, and says that he has filled several urinal cans with urine and has passed at least about 2 liters of urine in the last 2 to 3 hours itself. VITAL SIGNS: Show that his blood pressure is extremely elevated. Upon admission, his blood pressure was as high as 257/125, and it has come down slightly now and it is still high in the 200/100 range, despite him having gotten several doses of Lasix, IV hydralazine. The patient also received nitroglycerin. Despite that, his blood pressure is high. We are giving him a low dose of Ativan right now at 1 mg and also giving him Norvasc 10 mg as we speak right now. The patient is not a candidate for any IV metoprolol as his heart rate is in the low 70s to 60s. The patient is not a candidate for any IV enalapril or BHAVESH inhibitors at this time because his creatinine is 2.02. However, the patient is alert, oriented, and appears fairly comfortable for that high blood pressure. He says that his chest is not hurting anymore, but he still has a slight pressure in the center of the chest. He would not describe it as pain. HEENT: Unremarkable. NECK: There is mild JVD, but no thyromegaly. CARDIOVASCULAR SYSTEM: S1, S2 appreciated. Irregular rhythm noted. Mechanical aortic valve sounds noted. RESPIRATORY SYSTEM: Clear lungs. No rales or rhonchi definitely at this time. This could have been because the patient has received multiple doses of Lasix. ABDOMEN: Obese, soft, nontender, nondistended. A midline scar noted from previous gastric History And Physical [address] [place]. [address] NAME: NAVARROSNEHARICARDO CARRERA : 47 STATUS : ADM IN [facility]#: [id number] AGE: 71 ADM/REG DATE : 09/12/16 MR#: [id number] REPORT SERV DATE: 09/12/16 DICTATED BY: YANI MENDEZ DATE: 09/12/16 REPORT STATUS : Draft TRANSCRIBED BY: TRACE DATE: 09/12/16 bypass surgery. Bowel sounds are appreciated. EXTREMITIES: There is 2+ pedal edema on both lower extremities. Pedal pulses are well felt. The right lower extremity all along the guevara appears dusky pink in color. There seems to be mild cellulitis persisting in the right lower extremity. There is also tenderness in the right calf and the patient attributes this to a recent fall that he had. Please see history. He says that he hurt his leg and ever since, the right calf has been hurting him too. NEUROLOGICAL: Normal. MUSCULOSKELETAL: At this time does revealed cellulitis in the right lower extremity, but otherwise normal in the rest of the joints. PSYCHIATRIC: The patient does have history of depression for which he takes Cymbalta, but otherwise for now normal affect. LABORATORY DATA: The labs that I have on this patient include the following: His CBC today shows WBC count of 5.8, hemoglobin 11.6, hematocrit 35.6, platelet count of 264. INR is subtherapeutic at 1.9. Chest x-ray shows that he does have a developing left pleural effusion and left basilar atelectasis. His BNP is elevated at 777. His electrolytes show sodium 142, potassium 5.3, BUN is 52, creatinine is 2.02. Glucose is 93, magnesium is 2.7. Troponin I is normal at less than 0.02. EKG does show atrial fibrillation and no acute changes, however, at this time. ASSESSMENT: My assessment on this patient is: 1. Chest pain in a patient with multiple cardiac risk factors, but with negative troponin I. This is likely atypical chest pain, however, we will follow serial troponins and treat him for symptomatic treatment. We will also consult his financial sales manager, Dr. Resendiz. 2. Acute exacerbation of left ventricular failure. We will check a 2D echocardiogram. We will continue aggressive diuresis in this patient at least for the next 24 hours. We will also hold his BHAVESH inhibitor or ARB, however, given his kidney function tests. However, we will continue his Coreg and increase it to 12.5 mg p.o. b.i.d., as this might help his blood pressure too. 3. Hypertensive urgency. For this, we will increase his Coreg to 12.5 mg p.o. b.i.d., restart him on Norvasc 10 mg once a day, and also put him on hydralazine 25 mg p.o. q.6 hours. Hydralazine, however, will be held if his systolic blood pressure drops to below 110. 4. Acute kidney injury on chronic kidney disease, stage III to IV. We will consult Dr. Anthony Akbar, his gymnastics coach. For now, no BHAVESH inhibitors or ARBs. 5. Right lower extremity cellulitis-for this we will start him on IV Ancef 1 g every eight hours. 6. We will also go ahead and check a bilateral lower extremity venous Doppler to make sure that the patient does not have deep vein thrombosis. I doubt this because his INR is 1.9, however, with a history of deep vein thromboses in the past and also with the patient complaining of calf pain in the right leg, even though he attributes this to recent fall and trauma, we will check ultrasound of both lower extremities to rule out History And Physical [address] [address] NAME: SNEHA ELIZALDE : 47 STATUS : ADM IN [facility]#: [id number] AGE: 71 ADM/REG DATE : 09/12/16 MR#: [id number] REPORT SERV DATE: 09/12/16 DICTATED BY: YANI MENDEZ DATE: 09/12/16 REPORT STATUS : Draft TRANSCRIBED BY: MODL DATE: 09/12/16 deep vein thrombosis. We will give symptomatic and supportive care to this patient and follow him. I have already consulted Dr. Resendiz and Dr. kAbar both. We will follow. RAIZAA/TRACE Yani Mendez M.D. / [id number] CC: Sherif Nava M.D.
[~2016-09-12 12:19] MED LIST: AMB10 PO; AUG875 PO; BACTROCR TOP; C1 PO; COREG25 PO; COUMADIN PO; CYMBALTA60 PO; DORYX100 MG PO; DSS PO; FERROUS SULF325 M1 PO; L80 PO; LEVOTHYROXIN50 MCG PO; LIPITOR40 PO; LYRICA75 PO; NORCO1 TAB PO; NORV5 PO; ROCALTROL0.25 MCG PO; VITD PO; ZANAFLEX 4 MG TA4 MG PO; ZESTRIL20 MG PO
[2016-09-12 13:08] LABS: BASOPHILS 0.5 %; BASOPHILS ABSOLUTE 0.03 10/3/uL (0.0-0.16); EOSINOPHILS ABSOLUTE 0.46 10/3/uL (0.0-0.53); HEMATOCRIT 35.6 % (40.0-51.0); HEMOGLOBIN 11.6 g/dL (13.6-17.8); IMMATURE GRANULOCYTES 0.2 %; IMMATURE GRANULOCYTES ABSOLUTE 0.01 10/3/uL (0.0-0.11); LYMPHOCYTES 13.8 %; MEAN CORPUS HGB CONC 32.6 g/dL (32.0-36.0); MEAN CORPUSCULAR VOLUME 98.1 fL (80-100); MEAN PLATELET VOLUME 11.4 fL (9.2-13.0); MONOCYTES 11.4 %; MONOCYTES ABSOLUTE 0.66 10/3/uL (0.21-1.20); NEUTROPHILS 66.1 %; NEUTROPHILS ABSOLUTE 3.82 10/3/uL (2.02-8.40); PLATELET COUNT 264 10/3/uL (150-400); RBC DISTRIBUTION WIDTH 15.3 % (12.0-16.0); RED CELL COUNT 3.63 10/6/uL (4.7-6.1); WHITE BLOOD CELLS 5.8 10/3/uL (4.5-10.5)
[2016-09-12 13:10] LABS: ER CBC TAT 0 Hrs 05 Mins; MANUAL DIFF NO %
[2016-09-12 13:13] LABS: INTERNATIONAL NORMAL RATI 1.9 UNITS (-); PARTIAL THROMBO TIME 34.5 SEC (22.5-37.2); PROTIME (NOT ORD) 21.5 SEC (12.0-14.5)
[2016-09-12 13:22] LABS: BUN (BLOOD UREA NITROGEN) 52 MG/DL (6-23); CALCIUM, SERUM 8.8 MG/DL (8.5-10.4); CHEST PAIN PROFILE TAT 0 Hrs 19 Mins; CHLORIDE, SERUM 113 MMOL/L (96-112); CO2 (CARBON DIOXIDE) 23 MMOL/L (24-34); CREATININE 2.02 MG/DL (0.70-1.30); GFR AFRICAN AMERICAN 38 ML/MIN (>=60); GFR NON AFRICAN AMERICAN 32 ML/MIN (>=60); GLUCOSE, SERUM 93 MG/DL (60-99); SODIUM, SERUM 142 MMOL/L (135-148); TROPONIN I <0.02 NG/ML (<0.05)
[2016-09-12 13:23] LABS: POTASSIUM, SERUM 5.3 MMOL/L (3.5-5.3)
[2016-09-12] MEDS ORDERED: K500 PO (13:31)
[2016-09-12] MEDS ORDERED: ZESTRIL20 MG PO (13:33)
[2016-09-12] MEDS ORDERED: CYANO1000T PO (13:33)
[2016-09-12] MEDS ORDERED: MULTIVITAMI1 PO (13:35)
[2016-09-12] MEDS ORDERED: ASA5GR PO (13:35)
[2016-09-12] MEDS ORDERED: FISH-EPA1000 MG PO (13:36)
[2016-09-12] MEDS ORDERED: Z100 PO (13:40)
[2016-09-13 04:48] LABS: BASOPHILS 0.7 %; BASOPHILS ABSOLUTE 0.04 10/3/uL (0.0-0.16); EOSINOPHILS 9.6 %; EOSINOPHILS ABSOLUTE 0.53 10/3/uL (0.0-0.53); HEMATOCRIT 34.9 % (40.0-51.0); HEMOGLOBIN 11.4 g/dL (13.6-17.8); IMMATURE GRANULOCYTES 0.2 %; IMMATURE GRANULOCYTES ABSOLUTE 0.01 10/3/uL (0.0-0.11); LYMPHOCYTES 16.6 %; LYMPHOCYTES ABSOLUTE 0.92 10/3/uL (0.67-4.30); MEAN CORPUS HGB CONC 32.7 g/dL (32.0-36.0); MEAN CORPUSCULAR HEMOGLOB 31.8 pg (26.0-34.0); MEAN CORPUSCULAR VOLUME 97.2 fL (80-100); MEAN PLATELET VOLUME 10.8 fL (9.2-13.0); MONOCYTES 14.3 %; MONOCYTES ABSOLUTE 0.79 10/3/uL (0.21-1.20); NEUTROPHILS 58.6 %; NEUTROPHILS ABSOLUTE 3.24 10/3/uL (2.02-8.40); PLATELET COUNT 250 10/3/uL (150-400); RBC DISTRIBUTION WIDTH 15.2 % (12.0-16.0); RED CELL COUNT 3.59 10/6/uL (4.7-6.1); WHITE BLOOD CELLS 5.5 10/3/uL (4.5-10.5)
[2016-09-13 04:55] LABS: MANUAL DIFF NO %
[2016-09-13 05:11] LABS: INTERNATIONAL NORMAL RATI 1.7 UNITS (-); PROTIME (NOT ORD) 20.2 SEC (12.0-14.5)
[2016-09-13 05:15] LABS: BUN (BLOOD UREA NITROGEN) 54 MG/DL (6-23); CALCIUM, SERUM 8.9 MG/DL (8.5-10.4); CHLORIDE, SERUM 111 MMOL/L (96-112); CO2 (CARBON DIOXIDE) 24 MMOL/L (24-34); CREATININE 2.11 MG/DL (0.70-1.30); GFR AFRICAN AMERICAN 36 ML/MIN (>=60); GFR NON AFRICAN AMERICAN 31 ML/MIN (>=60); GLUCOSE, SERUM 92 MG/DL (60-99); SODIUM, SERUM 145 MMOL/L (135-148)
[2016-09-13 05:18] LABS: POTASSIUM, SERUM 4.1 MMOL/L (3.5-5.3)
[2016-09-14 05:11] LABS: BASOPHILS 0.9 %; BASOPHILS ABSOLUTE 0.05 10/3/uL (0.0-0.16); EOSINOPHILS 9.4 %; EOSINOPHILS ABSOLUTE 0.52 10/3/uL (0.0-0.53); HEMATOCRIT 33.5 % (40.0-51.0); HEMOGLOBIN 10.9 g/dL (13.6-17.8); IMMATURE GRANULOCYTES 0.2 %; IMMATURE GRANULOCYTES ABSOLUTE 0.01 10/3/uL (0.0-0.11); LYMPHOCYTES 19.8 %; MEAN CORPUS HGB CONC 32.5 g/dL (32.0-36.0); MEAN CORPUSCULAR HEMOGLOB 31.9 pg (26.0-34.0); MEAN PLATELET VOLUME 10.8 fL (9.2-13.0); MONOCYTES 13.7 %; MONOCYTES ABSOLUTE 0.76 10/3/uL (0.21-1.20); NEUTROPHILS ABSOLUTE 3.11 10/3/uL (2.02-8.40); PLATELET COUNT 263 10/3/uL (150-400); RBC DISTRIBUTION WIDTH 15.4 % (12.0-16.0); RED CELL COUNT 3.42 10/6/uL (4.7-6.1); WHITE BLOOD CELLS 5.6 10/3/uL (4.5-10.5)
[2016-09-14 05:18] LABS: MANUAL DIFF NO %
[2016-09-14 05:23] LABS: INTERNATIONAL NORMAL RATI 1.8 UNITS (-); PARTIAL THROMBO TIME 62.5 SEC (22.5-37.2)
[2016-09-14 05:38] LABS: ALBUMIN 3.2 G/DL (3.5-5.0); CALCIUM, SERUM 8.8 MG/DL (8.5-10.4); CHLORIDE, SERUM 111 MMOL/L (96-112); CO2 (CARBON DIOXIDE) 24 MMOL/L (24-34); CREATININE 2.24 MG/DL (0.70-1.30); GFR AFRICAN AMERICAN 33 ML/MIN (>=60); GFR NON AFRICAN AMERICAN 29 ML/MIN (>=60); GLUCOSE, SERUM 95 MG/DL (60-99); SGOT(AST) 20 U/L (5-40); SGPT(ALT) 13 U/L (5-65); SODIUM, SERUM 145 MMOL/L (135-148); TOTAL BILIRUBIN 0.5 MG/DL (0-1.2)
[2016-09-14 05:43] LABS: A/G RATIO 0.9 (0.7-1.9); ALKALINE PHOSPHATASE 129 U/L (45-117); BUN (BLOOD UREA NITROGEN) 60 MG/DL (6-23); GLOBULIN 3.7 G/DL (2.5-4.1); PHOSPHORUS, SERUM 4.2 MG/DL (2.5-4.5); TOTAL PROTEIN 6.9 G/DL (6.0-8.5)
[2016-09-15 04:43] LABS: INTERNATIONAL NORMAL RATI 1.8 UNITS (-); PROTIME (NOT ORD) 20.9 SEC (12.0-14.5)
[2016-09-15 04:50] LABS: ALBUMIN 3.2 G/DL (3.5-5.0); BUN (BLOOD UREA NITROGEN) 66 MG/DL (6-23); CALCIUM, SERUM 8.8 MG/DL (8.5-10.4); CHLORIDE, SERUM 112 MMOL/L (96-112); CO2 (CARBON DIOXIDE) 24 MMOL/L (24-34); CREATININE 2.25 MG/DL (0.70-1.30); GFR AFRICAN AMERICAN 33 ML/MIN (>=60); GFR NON AFRICAN AMERICAN 28 ML/MIN (>=60); GLUCOSE, SERUM 93 MG/DL (60-99); PHOSPHORUS, SERUM 4.7 MG/DL (2.5-4.5); POTASSIUM, SERUM 4.7 MMOL/L (3.5-5.3); SODIUM, SERUM 143 MMOL/L (135-148)
[2016-09-15 04:52] LABS: PARTIAL THROMBO TIME 122.2 SEC (22.5-37.2)
[2016-09-16 06:42] LABS: INTERNATIONAL NORMAL RATI 2.4 UNITS (-)
[2016-09-16 06:53] LABS: PROTIME (NOT ORD) 26.3 SEC (12.0-14.5)
[2016-09-16 06:58] LABS: BUN (BLOOD UREA NITROGEN) 72 MG/DL (6-23); CALCIUM, SERUM 8.5 MG/DL (8.5-10.4); CHLORIDE, SERUM 112 MMOL/L (96-112); CO2 (CARBON DIOXIDE) 26 MMOL/L (24-34); CREATININE 2.16 MG/DL (0.70-1.30); GFR AFRICAN AMERICAN 35 ML/MIN (>=60); GFR NON AFRICAN AMERICAN 30 ML/MIN (>=60); GLUCOSE, SERUM 109 MG/DL (60-99); PHOSPHORUS, SERUM 5.6 MG/DL (2.5-4.5); SODIUM, SERUM 144 MMOL/L (135-148)
[2016-09-17 04:37] LABS: BASOPHILS 0 %; EOSINOPHILS 0 %; HEMATOCRIT 34.6 % (40.0-51.0); HEMOGLOBIN 11.1 g/dL (13.6-17.8); IMMATURE GRANULOCYTES 0.3 %; IMMATURE GRANULOCYTES ABSOLUTE 0.02 10/3/uL (0.0-0.11); LYMPHOCYTES 12.7 %; LYMPHOCYTES ABSOLUTE 0.78 10/3/uL (0.67-4.30); MANUAL DIFF NO %; MEAN CORPUS HGB CONC 32.1 g/dL (32.0-36.0); MEAN CORPUSCULAR HEMOGLOB 31.9 pg (26.0-34.0); MEAN CORPUSCULAR VOLUME 99.4 fL (80-100); MEAN PLATELET VOLUME 11.1 fL (9.2-13.0); MONOCYTES 7.5 %; MONOCYTES ABSOLUTE 0.46 10/3/uL (0.21-1.20); NEUTROPHILS 79.5 %; NEUTROPHILS ABSOLUTE 4.89 10/3/uL (2.02-8.40); PLATELET COUNT 286 10/3/uL (150-400); RBC DISTRIBUTION WIDTH 15.1 % (12.0-16.0); RED CELL COUNT 3.48 10/6/uL (4.7-6.1); WHITE BLOOD CELLS 6.2 10/3/uL (4.5-10.5)
[2016-09-17 04:38] LABS: INTERNATIONAL NORMAL RATI 2.3 UNITS (-)
[2016-09-17 04:48] LABS: ALBUMIN 3.2 G/DL (3.5-5.0); BUN (BLOOD UREA NITROGEN) 70 MG/DL (6-23); CALCIUM, SERUM 9.2 MG/DL (8.5-10.4); CHLORIDE, SERUM 111 MMOL/L (96-112); CO2 (CARBON DIOXIDE) 22 MMOL/L (24-34); CREATININE 2.11 MG/DL (0.70-1.30); GFR AFRICAN AMERICAN 36 ML/MIN (>=60); GFR NON AFRICAN AMERICAN 31 ML/MIN (>=60); GLUCOSE, SERUM 125 MG/DL (60-99); POTASSIUM, SERUM 4.8 MMOL/L (3.5-5.3); SODIUM, SERUM 143 MMOL/L (135-148)
[2016-09-17 04:50] LABS: PHOSPHORUS, SERUM 4.4 MG/DL (2.5-4.5)
[2016-09-17] MEDS ORDERED: COREG6 PO (16:08)
[2016-09-17] MEDS ORDERED: NORV5 PO (16:09)
[2016-09-17] MEDS ORDERED: APRES25 PO (16:15)
[2016-09-17] MEDS ORDERED: MEDROLPAK4 PO (16:15)
[2017-01-21] MEDS ORDERED: L20 PO (21:31)
[2017-01-21] MEDS ORDERED: LIPITOR40 PO (21:32)
[2017-01-21] MEDS ORDERED: NORCO1 TAB PO (21:32)
[2017-01-21] MEDS ORDERED: C5 PO (21:33)
[2017-01-21] MEDS ORDERED: COUMADIN6 MG PO (21:34)
[2017-01-21] MEDS ORDERED: C1 PO (21:34)
[2017-01-21] MEDS ORDERED: ROCALTROL 0.0.25 MCG PO (21:34)
[2017-01-21] MEDS ORDERED: ZAROX2.5B PO (21:35)
[2017-01-21] MEDS ORDERED: LYRICA75 PO (21:36)
[2017-01-21] MEDS ORDERED: NORV5 PO (21:36)
[2017-01-21] MEDS ORDERED: Z100 PO (21:36)
[2017-01-21] MEDS ORDERED: ZANAFLEX 4 MG TA4 MG PO (21:36)
[2017-01-21] MEDS ORDERED: CYMBALTA60 PO (21:37)
[2017-01-21] MEDS ORDERED: AMB10 PO (21:37)
[2017-01-21] MEDS ORDERED: VITD PO (21:37)
[2017-01-21] MEDS ORDERED: SYN.05 PO (21:38)
[2017-01-21] MEDS ORDERED: MOVANTIK12.5 MG PO (21:38)
[2017-01-21] MEDS ORDERED: PROTONIX PO (21:38)
[2017-01-21] MEDS ORDERED: COREG6 PO (21:39)
[2017-01-21] MEDS ORDERED: NITROSTAT0.4 MG SL (21:40)
[2017-01-21] MEDS ORDERED: CARTIA XT120 MG/24 PO (21:40)
[2017-01-21] MEDS ORDERED: 8 HOUR650 MG PO (21:41)
[2017-01-21] MEDS ORDERED: CYANO1000T PO (21:42)
[2017-01-21] MEDS ORDERED: ASAB PO (21:42)
[2017-01-21] MEDS ORDERED: FERROUS SULF325 M1 PO (21:43)
[2017-01-21] MEDS ORDERED: FISH-EPA1000 MG PO (21:43)
[2017-01-21] MEDS ORDERED: MULTIVIT/MIN PO (21:43)
[2017-01-21] MEDS ORDERED: BACTROCR TOP (21:44)
[2017-01-29] MEDS ORDERED: PHOSLO PO (15:32)
[2017-02-02] MEDS ORDERED: COUMADIN4 MG PO (13:52)
[2017-02-03] MEDS ORDERED: AMB10 PO (12:04)
== END 2016-09-17 18:04 | disposition home health service (06) | DRG 291 ==
LOC: ER 12:19 → 7NO 17:31
PROVIDERS: Emergency Medicine; Internal Medicine Nephrology
DX: I13.0 Hypertensive heart and chronic kidney disease with heart failure and stage 1 through stage 4 chronic kidney disease, or unspecified chronic kidney disease (principal); I50.43 Acute on chronic combined systolic (congestive) and diastolic (congestive) heart failure; N17.9 Acute kidney failure, unspecified; I27.2 Other secondary pulmonary hypertension; E11.22 Type 2 diabetes mellitus with diabetic chronic kidney disease; L03.115 Cellulitis of right lower limb; I16.0 Hypertensive urgency; I48.0 Paroxysmal atrial fibrillation; N18.3 Chronic kidney disease, stage 3 (moderate); E78.5 Hyperlipidemia, unspecified; E03.9 Hypothyroidism, unspecified; M17.0 Bilateral primary osteoarthritis of knee; R07.89 Other chest pain; M10.9 Gout, unspecified; I87.2 Venous insufficiency (chronic) (peripheral); I25.10 Atherosclerotic heart disease of native coronary artery without angina pectoris; M25.562 Pain in left knee; M71.21 Synovial cyst of popliteal space [Baker], right knee; W19.XXXA Unspecified fall, initial encounter; Z98.84 Bariatric surgery status; Z79.01 Long term (current) use of anticoagulants; Z95.2 Presence of prosthetic heart valve; Z79.82 Long term (current) use of aspirin; Z86.718 Personal history of other venous thrombosis and embolism; Z95.0 Presence of cardiac pacemaker; Z95.1 Presence of aortocoronary bypass graft; Z91.041 Radiographic dye allergy status
CPT/HCPCS: 71010; 71020; 73560-LT; 73560-RT; 80048; 80053; 80069; 83605; 83735; 83880; 84145; 84484; 84550; 85025; 85610; 85730; 87040; 93005; 93970; 93975; 96374; 96375; 99291; A9270-GY; C8929; J0360; J0690; J1170; Q9957

== ENCOUNTER 2016-10-02 16:29 | Inpatient (IN) | payer MEDICARE, OTHER ==
--- NOTE | ~2016-10-02 | OP ---
Record Of Operation [facility] [address] [place]. [address] NAME: SNEHA BRICEÑO : 47 STATUS : ADM IN [facility]#: [id number] AGE: 71 ADM/REG DATE : 10/02/16 MR#: [id number] REPORT SERV DATE: 10/10/16 DICTATED BY: SUKHDEV CLEMONS DATE: 10/09/16 REPORT STATUS : Draft TRANSCRIBED BY: TRACE DATE: 10/09/16 DATE OF PROCEDURE: 10/09/2016 PROCEDURE: Enteroscopy. ENDOSCOPIST: Sukhdev Clemons M.D. INDICATION FOR PROCEDURE: The patient is a 71-year-old gentleman who has been having melena and has had an upper endoscopy and a colonoscopy without finding the etiology of bleeding. The patient then had a capsule enteroscopy, which did reveal bleeding in the mid small bowel, probably mid to distal jejunum, and enteroscopy was decided to be done. After obtaining informed consent, the patient was premedicated as per Anesthesia. Then, the Olympus enteroscope was passed to the [id number] jejunum with a little bit of difficulty, but without any complication. The difficulty was because of spasming and the anatomy. FINDINGS: The patient is status post a gastric bypass, and originally, the enteroscope was passed into the bypassed stomach. The stomach appeared to have some mild erythema, but no etiology of bleeding was seen and the duodenum was normal. The endoscope was then pulled back to the anastomotic site and the scope was then passed further into the jejunum, and after a time, the scope would not pass any further, and after one hour, it was decided to terminate the procedure. The scope appeared to have gone to the [id number] jejunum. No etiology of bleeding was seen and the mucosa all appeared normal. IMPRESSION: The patient has a normal enteroscopy to the [id number] jejunum. The scope did go into the bypassed stomach that was mildly erythematous and showed the mild gastritis, but otherwise, normal. RECOMMENDATIONS: 1. Follow the hemoglobin and hematocrit. 2. If he rebleeds, he may need an angiogram to see if they can find the actual site of bleeding and stop it that way versus having surgery versus a combination of surgery and enteroscopy. JAZLYN/TRACE Sukhdev Clemons M.D. / [id number] CC: Sherif Robledo M.D.
--- NOTE | ~2016-10-02 | CN ---
Consultation Report [facility] [address] [place]. [address] NAME: SNEHA BRICEÑO : 47 STATUS : ADM IN PAT#: [id number] AGE: 71 ADM/REG DATE : 10/02/16 MR#: [id number] REPORT SERV DATE: 10/03/16 DICTATED BY: JUSTIN UGARTE DATE: 10/03/16 REPORT STATUS : Draft TRANSCRIBED BY: MODL DATE: 10/03/16 NEPHROLOGY CONSULTATION DATE OF CONSULTATION: 10/03/2016 REASON FOR CONSULTATION: Acute upon chronic renal failure. HISTORY OF PRESENT ILLNESS: This is a 71-year-old, gentleman, who is a patient of Dr. Anthony Akbar, of [facility]. The gentleman has CKD stage 4, with baseline creatinine typically ranging from 2.1 to 2.4 mg/dL. The gentleman has substantial history of cardiac issues, as well as hypertension, diabetes, and obesity of longstanding duration. He was just in the hospital a month ago with volume overload and was appropriately diuresed and suffered a severe gout exacerbation. He was treated with allopurinol. He resolved the gout attack with steroid taper. He was discharged on sodium and potassium restriction in respect of his advanced chronic kidney disease, with plans for rapid followup. The gentleman takes chronic Coumadin therapy. He had been having recurrent epistaxis at home and was having increasing weakness and apparently fell within the past couple of days injuring his face and head a little bit. CT of the head was negative for intracranial bleed. He had been staying mostly in bed. He began to develop melanotic stools which have been persistent. He was scheduled for Nephrology appointment yesterday, which was canceled when he was found to be quite ill when he presented. Lab work was obtained as well and that prompted referral to the emergency department. He did not see a physician or the nurse practitioner of [facility] that day. Upon presentation, he was found to have depressed hemoglobin and hematocrit, with a BUN in the 190s, without any sign of uremic encephalopathy. He was noted to have hypokalemia and acute renal failure with creatinine elevation up to 3.7 mg/dL. PAST MEDICAL HISTORY: 1. CKD stage 4, followed by Dr. Akbar. 2. Hypertension, longstanding duration. 3. Diabetes type 2, longstanding duration. 4. Coronary artery disease. 5. History of atrial fibrillation. 6. Sick sinus syndrome with permanent pacemaker that was placed some time ago. 7. Aortic valve disease requiring replacement with mechanical aortic valve. The patient is a chronic Coumadin patient. 8. History of fluid overload particularly the last admission to the hospital. 9. History of depression. 10.History of B12 deficiency and chronic anemia. 11.Renal osteodystrophy for which he takes calcitriol. 12.Prior gastric bypass. 13.History of gout. Consultation Report [address] [place]. [address] NAME: SNEHA BRICEÑO : 47 STATUS : ADM IN [facility]#: [id number] AGE: 71 ADM/REG DATE : 10/02/16 MR#: [id number] REPORT SERV DATE: 10/03/16 DICTATED BY: JUSTIN UGARTE DATE: 10/03/16 REPORT STATUS : Draft TRANSCRIBED BY: TRACE DATE: 10/03/16 ALLERGIES: LISTED ARE IODINE AND IODINE CONTAINING PRODUCTS. MY ASSUMPTION IS THAT HE HAS BEEN LISTED HAVING ALLERGY TO IV CONTRAST WHICH IS IODINATED PROBABLY TO PROTECT HIS KIDNEYS. I DO NOT KNOW THAT HE HAS ACTUALLY HAD AN ALLERGIC REACTION TO THAT IN THE PAST. THAT INFORMATION SIMPLY IS NOT AVAILABLE TO ME. HOME MEDICATIONS: 1. Allopurinol 100 mg daily. 2. Amlodipine 5 mg daily. 3. Aspirin 325 mg oral daily. 4. Atorvastatin 40 mg oral at bedtime. 5. Calcitriol 0.25 mcg oral midday daily. 6. Carvedilol 12.5 mg oral twice daily. 7. Cyanocobalamin 1000 mcg oral midday daily. 8. Colace 100 mg oral at bedtime every night. 9. Cymbalta/duloxetine 60 mg oral at bedtime. 10.Ergocalciferol 50,000 units oral once weekly. 11.Ferrous sulfate 325 mg oral daily. 12.Furosemide 80 mg oral twice daily. 13.Hydralazine 25 mg oral every 8 hours. 14.Hydrocodone/APAP 10/325 mg oral every 6 hours as needed for pain. 15.Levothyroxine 50 mcg oral daily. 16.Multivitamin once daily. 17.Mupirocin topical to soars on arms, frequency not known to me. 18.Fish oil 1000 mg oral at bedtime. 19.Lyrica 75 mg oral twice daily. 20.Tizanidine which is Zanaflex 4 mg oral at bedtime. 21.Warfarin 8.5 mg oral daily. 22.Zolpidem 10 mg oral at bedtime as needed for insomnia. FAMILY HISTORY: His father had coronary artery disease, history of kidney stones, and also diabetes and hypertension. His mother had Alzheimer's and hypertension. There is no family history of chronic kidney disease. SOCIAL HISTORY: He has a history of being . I believe he is remarried. He has a daughter, who lives not far from here. He quit tobacco some time ago. He does not drink, smoke, or abuse any illicit substances. My guess is that he is probably disabled. REVIEW OF SYSTEMS: Negative except as outlined in history of present illness. The patient denied any genitourinary complaints. PHYSICAL EXAMINATION: VITAL SIGNS: ,Blood pressure 145/66, heart rate 97, respiratory rate 25, and temperature 97.5. GENERAL: Chronically ill-appearing gentleman, with some bruises about the face, who is Consultation Report [address] [address] NAME: SNEHA BRICEÑO : 47 STATUS : ADM IN [facility]#: [id number] AGE: 71 ADM/REG DATE : 10/02/16 MR#: [id number] REPORT SERV DATE: 10/03/16 DICTATED BY: JUSTIN UGARTE DATE: 10/03/16 REPORT STATUS : Draft TRANSCRIBED BY: TRACE DATE: 10/03/16 alert, lucid, oriented, and in no distress. HEENT: There is some bruising about the right side of the face. No overt laceration of the face or scalp. No palpable cranial deformity. Sinuses nontender. Oropharynx, mucous membranes are moist and pale. A little bit of wrinkling over the tongue. I did not see any blood in the mouth. Nares presently patent without any overt bleeding. Eye exam was conjunctivae free of any hemorrhages or exudates. Sclerae were anicteric. Pupils equal, round, and reactive to light. NECK: Exam easily movable. No palpable masses or nodules. Trachea midline. LYMPHATIC: Anterior-posterior neck, supraclavicular, axillary, and abdominal regions were free of lymphadenopathy. LUNGS: Respiratory efforts are nonlabored. Lung turner clear to auscultation throughout. CARDIOVASCULAR: Heart sounds somewhat distant. Regular rate and rhythm appreciated without any gallop or rub. Positive aortic prosthetic snap right upper sternal border with no abnormality by my exam. EXTREMITIES: He has 2+ somewhat hardened edema bilateral lower extremities. ABDOMEN: Protuberant with general fullness to palpation, but no tenderness or guarding. Auscultation reveals active bowel sounds throughout. No palpable masses. No appreciable fluid wave. SKIN: Some ecchymoses in various locations noted. No breakdown. Skin turgor is within normal limits. He is not currently jaundiced. LABORATORY DATA: Urinalysis pending. CT of the brain revealed no hemorrhage. No chest x- ray. Chemistry; sodium 142, potassium 2.7, chloride 105, CO2 27, BUN 195, creatinine 3.42, total bilirubin, AST, ALT, and alkaline phosphatase were all within normal limits. INR 3.5. CBC; white cell count 8.2, hemoglobin 7.2, hematocrit 21.5%, and platelets 309. IMPRESSIONS: 1. 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 The dramatically elevated BUN almost certainly is secondary to ingested blood that has been digested. I certainly at this point, cannot rule out acute tubular necrosis. Fortunately, he is nonoliguric and not requiring diuretics at this time. 2. Chronic kidney disease stage 4, with baseline creatinine of 2.1 to 2.4, and GFR is always less than 30 mL/minute at our office when we check it. 3. Hypokalemia, secondary to gastrointestinal blood loss, with consequent prerenal state, and consequent hyper aldosterone state. Also, he was on a potassium restricted diet when he left the hospital the last time. That certainly needs to be reconsidered upon discharge from this admission if he does not develop a tendency of hyperkalemia. 4. Acute gastrointestinal bleeding. Yes, indeed there was some an epistaxis involved as well, but I do not think that is the entire picture given the dramatic elevation in BUN. 5. Severe anemia, secondary to bleeding diathesis. 6. He is on multiple medications. But he has multiple and complicated medical problems. 7. Chronic Coumadin patient. 8. Renal osteodystrophy. Consultation Report [place] [address] [place]. [address] NAME: SNEHA BRICEÑO : 47 STATUS : ADM IN PAT#: [id number] AGE: 71 ADM/REG DATE : 10/02/16 MR#: [id number] REPORT SERV DATE: 10/03/16 DICTATED BY: JUSTIN UGARTE DATE: 10/03/16 REPORT STATUS : Draft TRANSCRIBED BY: TRACE DATE: 10/03/16 9. Recent gait instability and falling, possibly orthostasis with recent fall and injury of the face. No evidence of intracranial bleed. 10.Other past medical history and chronic problems as outlined above. PLAN/RECOMMENDATION: 1. I agree with transfusion today and he is receiving 1 unit packed red blood cells as I was seeing him. 2. IV potassium chloride repletion has already been accomplished. We need to recheck potassium level. Recheck labs after transfusion today. 3. Gastrointestinal workup. 4. Routine chemistries and volume status and reassess daily for need for hemodialysis. Presently, it is not indicated. 5. Electrolyte protocol. 6. Hold diuretics. 7. Resume Lyrica and allopurinol. 8. Send urinalysis today. Thank you for allowing me in the care of this complicated patient. Our service will follow carefully. BELKIS/TRACE Justin Ugarte M.D. / [id number] CC: Sherif Munoz M.D.
--- NOTE | ~2016-10-02 | IDS ---
Interim Discharge Summary [facility] [address] [place]. [address] NAME: SNEHA BRICEÑO : 47 STATUS : ADM IN [facility]#: [id number] AGE: 71 ADM/REG DATE : 10/02/16 MR#: [id number] REPORT SERV DATE: 10/12/16 DICTATED BY: JANET MARISCAL DATE: 10/12/16 REPORT STATUS : Draft TRANSCRIBED BY: TRACE DATE: 10/12/16 ADMISSION DATE: 10/02/2016 DISCHARGE DATE: DIAGNOSES: 1. GI bleed. 2. Acute blood loss anemia. 3. Mechanical valve chronic. 4. Type 2 diabetes. 5. Hypertension. 6. Hypothyroidism. 7. Chronic kidney disease. CONSULTANTS: GI Dr. Finley and Nephrology Dr. Ugarte. HOSPITALIST: Dr. Derrick Hooker Jr.; Dr. Carmelo Zhong; and Dr. Mariscal. PROCEDURES: Enteroscopy by Dr. Charles Finley on 10/09/[address] Finley on 07/03/2016. HOSPITAL COURSE: A 71 years old male with a past medical history of recurrent GI bleed, being followed by Dr. Finley, has had several endoscopy workups earlier this year in June; also a history of a mechanical valve on chronic anticoagulation; and type 2 diabetes, presented with a chief complaint of melena. The patient, according to H and P, was hemodynamically stable. He was admitted to the Hospitalist Service. INR at that time was 3.3. He was found to have some acute blood loss anemia with a hemoglobin of 8.6 on admission. Also with some acute on chronic kidney disease. He was admitted to the hospitalist Service with a GI consultation by Dr. Finley as well as a consultation to Nephrology service. The patient had a colonoscopy that revealed nonbleeding internal hemorrhoids but otherwise nondiagnostic. The patient also had an enteroscopy on 10/09/2016, that was also nondiagnostic. Therefore Dr. Finley re-initiated the patient's diet and stated if the patient rebleeds, he may need an angiogram. The patient is continued on his heparin drip and also Coumadin. His INR has slowly increased up to 1.4. The patient states he usually requires high doses of Coumadin to get his INR therapeutic. Since his enteroscopy, the patient has not had any recurrent bleeding. He is having good soft bowel movements, brown. He remains anemic. He has required multiple transfusions during his hospital course prior to his enteroscopy for acute blood loss anemia. He denies any lightheadedness or dizziness at this time. The patient will be followed by Dr. Dylan Barksdale who will attend to this patient's care. TIFF/TRACE Janet Chan Interim Discharge Summary [address] [address] NAME: SNEHA BRICEÑO : 47 STATUS : ADM IN [facility]#: [id number] AGE: 71 ADM/REG DATE : 10/02/16 MR#: [id number] REPORT SERV DATE: 10/12/16 DICTATED BY: JANET MARISCAL DATE: 10/12/16 REPORT STATUS : Draft TRANSCRIBED BY: TRACE DATE: 10/12/16 Sherif Mariscal / [id number] CC: Sherif Robledo M.D.
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
--- NOTE | ~2016-10-02 | CN ---
Consultation Report [facility] [address] [place]. [address] NAME: SNEHA ELIZALDE : 47 STATUS : ADM IN PAT#: [id number] AGE: 71 ADM/REG DATE : 10/02/16 MR#: [id number] REPORT SERV DATE: 10/14/16 DICTATED BY: RICARDO MEDINA DATE: 10/14/16 REPORT STATUS : Draft TRANSCRIBED BY: MODL DATE: 10/14/16 DATE OF CONSULTATION: 10/14/2016 PRIMARY OFFICE SPECIALIST: Dr. Resendiz. CHIEF COMPLAINT: Chest pain. REASON FOR CONSULTATION: Chest pain. SOURCE: Patient's chart. HISTORY OF PRESENT ILLNESS: Mr. Elizalde is a very pleasant 71-year-old white man with history of multiple medical problems, including coronary artery disease, status post mechanical AVR, and coronary artery bypass grafting, 12/09/2010 at [facility]. He also reports that he had a recent admission for GI bleeding and underwent GI evaluation at that time. He was rehospitalized on 10/02/[address] Akbar's office for a post-hospital visit. He was found to have hypokalemia and worsened anemia and was admitted again. He had GI PillCam and enteroscopy. He reports the bleeding has stopped. He was off Coumadin and heparin for about four days. Then, the heparin was started and he is starting back on Coumadin. For the last three days, he has had chest pain radiating to the back and arm like he had before his heart surgery, occurring after supper. It is sharp, it lasted about an hour and a half at a time. He did not require any nitroglycerin. It is gone now. He has not had any associated nausea, vomiting, dyspnea, or diaphoresis. He does notice a headache. No shortness of breath, palpitations, or syncope. He denies any worsening of his swelling. REVIEW OF SYSTEMS: All other systems are negative. ALLERGIES: IODINE-CONTAINING PRODUCTS CAUSE HIM TO FEEL TIGHT AND SWOLLEN. MEDICATIONS: Include heparin, starting Coumadin, amlodipine, Rocaltrol, carvedilol, cyanocobalamin, duloxetine, fluticasone, insulin, levothyroxine, multivitamins, naloxegol, pantoprazole, polyethylene glycol, pregabalin, warfarin, IV iron. CARDIAC RISK FACTORS: Included hypertension, former tobacco. Denies diabetes, cholesterol, or family history. SOCIAL HISTORY: The patient lives in [place], [place]. He is . He has 4 + 5 children, who are alive and well. He is retired from the [employer]. 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 FAMILY HISTORY: Father had coronary artery bypass grafting in his 60s. of congestive heart failure at age 82. Sister had stents in her 60s. Consultation Report [address] [place]. [address] NAME: SNEHA ELIZALDE : 47 STATUS : ADM IN [facility]#: [id number] AGE: 71 ADM/REG DATE : 10/02/16 MR#: [id number] REPORT SERV DATE: 10/14/16 DICTATED BY: RICARDO MEDINA DATE: 10/14/16 REPORT STATUS : Draft TRANSCRIBED BY: TRACE DATE: 10/14/16 PAST MEDICAL HISTORY: Significant for coronary artery disease and aortic valve disease status post coronary artery bypass grafting and mechanical AVR and maze procedure, 12/09/2010 at [facility]. He had permanent pacemaker placement, September 2013. He had cardioversion for AFib back in 2002 or 2003. He has had congestive heart failure, chronic kidney disease stage IV, nephrolithiasis, status post gallbladder surgery, status post gastric bypass surgery in 1999, status post tonsillectomy, status post hernia repair. He reportedly needs right knee surgery. He has had GI bleeding and has undergone GI evaluation, including EGD, colonoscopy, PillCam which revealed possible small bowel bleeding, enteroscopy which did not reveal a site of bleeding, but did notice some gastritis. PHYSICAL EXAMINATION: GENERAL: He is a well-developed, well-nourished, chronically ill-appearing, elderly white man, in no acute distress. VITAL SIGNS: Blood pressure 146/64, pulse 81, temperature 97.1, weight is 117 kg, height is 175 cm. HEENT: Sclerae anicteric. Lips without cyanosis. Carotids 2+ and symmetrical. No bruits. No JVD. No thyromegaly. LUNGS: Clear to auscultation. No use of accessory muscles. HEART: Regular rate and rhythm with a sharp mechanical S2, 1/6 systolic murmur. No heaves or thrills. ABDOMEN: Positive bowel sounds. Soft, nontender, upright. EXTREMITIES: Pulses 2+ and symmetrical. No cyanosis or clubbing. Moderate bilateral edema, varicosities, thick legs. BACK: No CVA tenderness. MUSCULOSKELETAL: Good tone. NEURO: Alert and oriented x3. IMAGING DATA: EKG reveals atrial fibrillation, occasional paced beats, low voltage QRS, nonspecific ST changes. Initial EKG was paced. LABORATORY EXAMINATION: Included the PTT of 73. The sodium 140, potassium 5.8, chloride 114, CO2 of 20, glucose 141, BUN 59, creatinine 2.18, GFR of 30. Troponin of 0.03. Multiple sets have been likewise negative. The white count is 4.8, hemoglobin 8.3, hematocrit 26.5, platelets 301,000. BNP level 418. Echocardiogram on 09/13/2016: LVEF of 50% to 55%, mild concentric LVH, mild RV enlargement, depressed right ventricular systolic function, borderline normal left atrial size, mild pulmonary hypertension, RV systolic pressure of 43 mmHg, stable mechanical aortic valve prosthesis with mean pressure gradient of 9 mmHg. IMPRESSION: 1. Atypical chest pain, now resolved. 2. No evidence of myocardial infarction. 3. Coronary artery disease status post coronary artery bypass grafting and mechanical aortic valve replacement, 12/09/2010 at [facility]. 4. Chronic atrial fibrillation, on heparin to Coumadin. He was off for several days at Consultation [address] [address] NAME: SNEHA ELIZALDE : 47 STATUS : ADM IN [facility]#: [id number] AGE: 71 ADM/REG DATE : 10/02/16 MR#: [id number] REPORT SERV DATE: 10/14/16 DICTATED BY: RICARDO MEDINA DATE: 10/14/16 REPORT STATUS : Draft TRANSCRIBED BY: MODL DATE: 10/14/16 the beginning of his hospital stay. 5. Status post pacemaker placement. 6. Chronic kidney disease, stage IV. 7. Iodinated-contrast allergy. 8. Congestive heart failure with last left ventricular ejection fraction of 50% to 55%. 9. Status post gastrointestinal bleed with GI workup as previously described. 10.Acute blood loss anemia status post transfusion. 11.Prior gastric bypass surgery. 12.Hypertension. Currently under good control. 13.Obesity. 14.Hypothyroidism, on replacement. 15.Anemia, status post transfusions. RECOMMENDATIONS: 1. I agree with possible PET scan in a.m. The risks, benefits, and complications were discussed with the patient. He understands them and those of his alternatives and wishes to proceed. Questions answered. 2. Continue IV heparin to Coumadin for now. 3. Further recommendations following the above. BN/MODL Ricardo Medina M.D. / [id number] CC: Sherif Nava M.D.
--- NOTE | ~2016-10-02 | DS ---
Discharge Summary [place] [place]. [address] NAME: SNEHA BRICEÑO : 47 STATUS : DIS IN PAT#: [id number] AGE: 71 ADM/REG DATE : 10/02/16 MR#: [id number] REPORT SERV DATE: 10/17/16 DICTATED BY: DATE: REPORT STATUS : Draft TRANSCRIBED BY: MODL DATE: 10/16/16 ADMISSION DATE: 10/02/2016 DISCHARGE DATE: 10/16/2016 DISCHARGE DIAGNOSES: 1. Acute gastrointestinal bleed, resolved. 2. Acute blood loss anemia on chronic anemia. 3. History of mechanical aortic valve replacement. 4. History of chronic congestive heart failure. 5. History of chronic atrial fibrillation. 6. History of coronary artery disease. CONSULTATIONS: 1. Dr. Nehemiah Ugarte, Nephrology, 10/03/2016. 2. Dr. Charles Finley, GI, 10/10/2016. 3. Dr. Shiraz Carolina, Cardiology, 10/14/2016. PERTINENT TESTS AND PROCEDURES: 1. CT of brain without contrast 10/02/2016, impression: Moderate cerebral atrophy with periventricular leukoencephalopathy and intracranial atherosclerosis. No acute intracranial hemorrhage identified. 2. Nuclear myocardial imaging 10/15/2016, conclusions: PET images demonstrated small area of basal inferior ischemia. Overall, moderate risk vasodilator PET scan. Ejection fraction 71%. 3. Enteroscopy 10/09/2016, impression: Normal enteroscopy to the mid to distal jejunum. The scope did not go into the bypass stomach that was mildly erythematous and showed mild gastritis but otherwise normal. RECOMMENDATIONS: Continue to follow hemoglobin and hematocrit. If rebleeding occurs, the patient may need angiogram to see if actual site of bleeding can be identified. HOSPITAL COURSE: Please refer to history and physical dated 10/03/[address] Derrick Hooker for complete details pertaining to patient's initial presentation upon admission and health history. Please also refer to consultations dated 10/03, 10/10, and 10/14/[address] Nehemiah Ugarte, Nephrology; Dr. Charles Finley, Gastroenterology; and Dr. Shiraz Carolina, Cardiology. Please also refer to interim discharge summary dated October 12 covering dates of service between October 02 and October [address] Maria Teresa Rahman. Briefly, the patient is a 71-year-old male who presented to the emergency department on October 02 with complaints of black stools, falls, and weakness. It is noteworthy to mention the patient was recently hospitalized at [facility] between the Discharge Summary [address] [place]. [address] NAME: SNEHA BRICEÑO : 47 STATUS : DIS IN PAT#: [id number] AGE: 71 ADM/REG DATE : 10/02/16 MR#: [id number] REPORT SERV DATE: 10/17/16 DICTATED BY: DATE: REPORT STATUS : Draft TRANSCRIBED BY: MODL DATE: 10/16/16 dates of 09/12 and 09/17/2016 for fluid overload and chest pain. The patient also had previous admission in May 2016 for GI bleed. The patient underwent endoscopic workup on June 28 which showed findings of gastric bypass without evidence of bleeding or inflammation. The patient underwent colonoscopy on June 29 which was poor prep and showed only red blood in the entirety of the exam and portion of the colon. Repeat colonoscopy on 06/30/2016 after adequate prep did not show any evidence of bleeding. Upon initial evaluation, diagnostic testing including labs showed the patient's hemoglobin had dropped from 11.6 to 8.6 over the course of about 17 days. INR was 3.3. The patient was diagnosed with acute upper gastrointestinal bleed in the setting of mechanical aortic valve replacement. The patient was admitted for further evaluation and treatment. Enteroscopy performed during this admission did not show any evidence of bleeding. Source of GI bleed was never identified. Bleed self resolved during this admission. 1. Acute GI bleed. The patient has not had any episodes of bloody stool. Since admission, diagnostic workup to include enteroscopy was negative. Continue Protonix twice daily and follow up outpatient with Dr. Finley. If recurrent bleeding as an outpatient, the patient will require additional diagnostic workup. 2. Acute blood loss anemia on chronic anemia. This patient's hemoglobin was reported to be between 8.0 and 8.6 upon admission. The patient received 6 units of packed red blood cells between the dates of 10/02 and 10/08/2016. The patient's hemoglobin remains low but is stable status post transfusion. On the day of discharge, hemoglobin and hematocrit are 7.9 and 24.5. 3. History of mechanical aortic valve replacement. The patient is on chronic warfarin therapy. The patient self manages Coumadin per sliding scale at home. The patient has INR meter. The patient's goal INR is between 2.5 and 3.5. The patient's INR was 1.6 on 10/14. The patient is fairly Coumadin resistant. The patient's discharge was delayed until INR was therapeutic. The patient responded to increased daily doses of warfarin at 15 mg daily. INR of 2.4 was achieved today. The patient will resume self- management of warfarin upon discharge and follow up with Cardiology as needed. 4. Atypical chest pain. Cardiology was consulted. PET images demonstrated a small area of basal inferior ischemia with overall moderate risk vasodilator PET scan. Results were reviewed by Cardiology. Recommendation included medical therapy only in setting of multiple comorbidities. 5. Chronic CHF. No signs or symptoms of acute exacerbation during this admission. 6. Chronic atrial fibrillation, rate is controlled. Continue chronic anticoagulation therapy upon discharge. 7. History of coronary artery disease. The patient is status post coronary artery bypass grafting, mechanical aortic valve replacement on 12/09/2010. 8. Chronic kidney disease, stage IV. Nephrology has followed the patient throughout this admission. Home Lasix dose was decreased from 80 mg to 40 mg p.o. daily. The patient's baseline creatinine typically ranges between 2.1 and 2.4. Acute on chronic kidney injury was most likely energy conservation representative of a prerenal state in the setting of recent GI bleed. The patient was also suffering from hypokalemia most likely secondary to GI blood loss with consequent prerenal state. The patient responded well to IV potassium repletion and temporary holding of diuretics. The patient's creatinine was reported to be 2.0 on the day of discharge. The patient will follow up with Discharge Summary [address] [address] NAME: SNEHA BRICEÑO : 47 STATUS : DIS IN PAT#: [id number] AGE: 71 ADM/REG DATE : 10/02/16 MR#: [id number] REPORT SERV DATE: 10/17/16 DICTATED BY: DATE: REPORT STATUS : Draft TRANSCRIBED BY: MODMena DATE: 10/16/16 Nephrology. DISCHARGE CONDITION: At the time of discharge, the patient is hemodynamically stable. DISCHARGE DIET: 2 g low-sodium renal diet. DISCHARGE MEDICATIONS: 1. Norvasc 5 mg tablet p.o. daily. 2. Rocaltrol 0.25 mcg tablet p.o. daily with lunch. 3. Coreg 6.25 mg tablet p.o. twice daily. The patient's home dose was originally 12.5 mg tablet p.o. twice daily. Dose was lowered per Nephrology, and the patient was provided with new prescription. 4. Vitamin B12 of 1000 mcg p.o. daily. 5. Cymbalta 60 mg tablet p.o. daily. 6. Lasix 40 mg p.o. daily. Patient's dose was originally 80 mg p.o. twice daily at home. This was lowered per Nephrology. 7. Levothyroxine 50 mcg p.o. daily. 8. Multivitamin p.o. daily. 9. Protonix 40 mg tablet p.o. daily before breakfast and supper. 10.MiraLAX one packet p.o. twice daily. Hold for diarrhea. 11.Lyrica 75 mg p.o. twice daily. 12.Zanaflex 4 mg p.o. at bedtime. 13.Warfarin to be dosed per patient's home sliding scale. The patient has INR meter. 14.Tylenol 325 mg tablet, take two tablets p.o. every four hours as needed. 15.[place] 10/325 mg tablet p.o. every six hours as needed. Hold for sedation. 16.Ambien 10 mg tablet p.o. at bedtime as needed. 17.Lipitor 40 mg tablet p.o. daily at bedtime. 18.Bactroban 2% cream applied topically to sores on arms as needed. 19.Vitamin D 27610 units p.o. on . 20.Colace 100 mg tablet p.o. at bedtime. 21.Ferrous sulfate 325 mg tablet p.o. daily. 22.Aspirin 325 mg tablet p.o. daily. 23.Fish oil 1000 mg p.o. daily at bedtime. 24.Allopurinol 100 mg tablet p.o. daily. 25.Hydralazine 25 mg p.o. every eight hours. This was a home med. This medication was discontinued per Nephrology during this admission. DISCHARGE INSTRUCTIONS: 1. Follow up with Dr. Resendiz, Cardiology 10/30/2016 at 10 a.m. 2. Follow up with Dr. Gómez, PCP 10/22/2016 at 3:45 p.m. 3. Follow up with Dr. Akbar, Nephrology 12/05/2016 at 9 a.m. 4. Follow up with Dr. Finley, GI as needed. The patient was instructed to return to the emergency room for any acute onset of bloody stool, bright red blood per rectum, shortness of breath, chest pain, syncopal or near syncopal events, or any other health concerns that are deviations from his baseline health state at the time of this discharge. Discharge Summary [address] [address] NAME: SNEHA BRICEÑO : 47 STATUS : DIS IN PAT#: [id number] AGE: 71 ADM/REG DATE : 10/02/16 MR#: [id number] REPORT SERV DATE: 10/17/16 DICTATED BY: DATE: REPORT STATUS : Draft TRANSCRIBED BY: TRACE DATE: 10/16/16 DICTATED BY: PASTOR Donaldson [facility]/TRACE PASTOR Donaldson / [id number] CC: MD Phoebe Gaytan II, M.D.
[2016-10-02 16:03] LABS: BASOPHILS 0.3 %; BASOPHILS ABSOLUTE 0.03 10/3/uL (0.0-0.16); EOSINOPHILS 1.8 %; EOSINOPHILS ABSOLUTE 0.18 10/3/uL (0.0-0.53); ER CBC TAT 0 Hrs 05 Mins; IMMATURE GRANULOCYTES 0.4 %; IMMATURE GRANULOCYTES ABSOLUTE 0.04 10/3/uL (0.0-0.11); LYMPHOCYTES ABSOLUTE 1.61 10/3/uL (0.67-4.30); MEAN CORPUSCULAR HEMOGLOB 32.1 pg (26.0-34.0); MEAN PLATELET VOLUME 10.8 fL (9.2-13.0); MONOCYTES 5.1 %; MONOCYTES ABSOLUTE 0.51 10/3/uL (0.21-1.20); NEUTROPHILS 76.4 %; NEUTROPHILS ABSOLUTE 7.71 10/3/uL (2.02-8.40); PLATELET COUNT 364 10/3/uL (150-400); RBC DISTRIBUTION WIDTH 14.3 % (12.0-16.0); WHITE BLOOD CELLS 10.1 10/3/uL (4.5-10.5)
[2016-10-02 16:07] LABS: HEMATOCRIT 25.1 % (40.0-51.0); HEMOGLOBIN 8.6 g/dL (13.6-17.8); MANUAL DIFF NO %; MEAN CORPUS HGB CONC 34.3 g/dL (32.0-36.0); MEAN CORPUSCULAR VOLUME 93.7 fL (80-100); RED CELL COUNT 2.68 10/6/uL (4.7-6.1)
[2016-10-02 16:14] LABS: INTERNATIONAL NORMAL RATI 3.3 UNITS (-)
[2016-10-02 16:15] LABS: PARTIAL THROMBO TIME 52.9 SEC (22.5-37.2); PROTIME (NOT ORD) 33.6 SEC (12.0-14.5)
[2016-10-02 16:18] LABS: A/G RATIO 0.8 (0.7-1.9); ALBUMIN 3.3 G/DL (3.5-5.0); ALKALINE PHOSPHATASE 134 U/L (45-117); CALCIUM, SERUM 7.8 MG/DL (8.5-10.4); CHLORIDE, SERUM 100 MMOL/L (96-112); CO2 (CARBON DIOXIDE) 27 MMOL/L (24-34); GLOBULIN 3.9 G/DL (2.5-4.1); SGOT(AST) 32 U/L (5-40); SGPT(ALT) 28 U/L (5-65); SODIUM, SERUM 138 MMOL/L (135-148); TOTAL BILIRUBIN 0.6 MG/DL (0-1.2); TOTAL PROTEIN 7.2 G/DL (6.0-8.5)
[2016-10-02 16:23] LABS: POTASSIUM, SERUM 2.7 MMOL/L (3.5-5.3)
[2016-10-02 16:24] LABS: BUN (BLOOD UREA NITROGEN) 198 MG/DL (6-23); CREATININE 3.72 MG/DL (0.70-1.30); GFR AFRICAN AMERICAN 18 ML/MIN (>=60); GFR NON AFRICAN AMERICAN 16 ML/MIN (>=60); GLUCOSE, SERUM 115 MG/DL (60-99)
[~2016-10-02 16:29] MED LIST changes: +APRES25 PO; +ASA5GR PO; +COREG6 PO; +CYANO1000T PO; +FISH-EPA1000 MG PO; +K500 PO; +MEDROLPAK4 PO; +MULTIVITAMI1 PO; +Z100 PO
[2016-10-02 21:41] LABS: HEMATOCRIT 23.9 % (40.0-51.0)
[2016-10-03 00:25] LABS: HEMOGLOBIN 7.9 g/dL (13.6-17.8)
[2016-10-03 03:39] LABS: BASOPHILS 0.5 %; BASOPHILS ABSOLUTE 0.04 10/3/uL (0.0-0.16); EOSINOPHILS 1.6 %; EOSINOPHILS ABSOLUTE 0.13 10/3/uL (0.0-0.53); HEMATOCRIT 22.7 % (40.0-51.0); HEMOGLOBIN 7.5 g/dL (13.6-17.8); IMMATURE GRANULOCYTES 0.4 %; IMMATURE GRANULOCYTES ABSOLUTE 0.03 10/3/uL (0.0-0.11); LYMPHOCYTES 15.9 %; MANUAL DIFF NO %; MEAN CORPUSCULAR HEMOGLOB 31.6 pg (26.0-34.0); MEAN CORPUSCULAR VOLUME 95.8 fL (80-100); MEAN PLATELET VOLUME 10.5 fL (9.2-13.0); MONOCYTES 9.7 %; MONOCYTES ABSOLUTE 0.79 10/3/uL (0.21-1.20); NEUTROPHILS 71.9 %; NEUTROPHILS ABSOLUTE 5.89 10/3/uL (2.02-8.40); PLATELET COUNT 309 10/3/uL (150-400); RBC DISTRIBUTION WIDTH 14.6 % (12.0-16.0); RED CELL COUNT 2.37 10/6/uL (4.7-6.1); WHITE BLOOD CELLS 8.2 10/3/uL (4.5-10.5)
[2016-10-03 03:44] LABS: INTERNATIONAL NORMAL RATI 3.5 UNITS (-); PARTIAL THROMBO TIME 46.8 SEC (22.5-37.2); PROTIME (NOT ORD) 34.7 SEC (12.0-14.5)
[2016-10-03 03:55] LABS: A/G RATIO 0.8 (0.7-1.9); ALBUMIN 2.8 G/DL (3.5-5.0); CALCIUM, SERUM 7.5 MG/DL (8.5-10.4); CHLORIDE, SERUM 105 MMOL/L (96-112); CO2 (CARBON DIOXIDE) 27 MMOL/L (24-34); CREATININE 3.42 MG/DL (0.70-1.30); GFR AFRICAN AMERICAN 20 ML/MIN (>=60); GFR NON AFRICAN AMERICAN 17 ML/MIN (>=60); GLOBULIN 3.5 G/DL (2.5-4.1); GLUCOSE, SERUM 123 MG/DL (60-99); SGOT(AST) 27 U/L (5-40); SGPT(ALT) 20 U/L (5-65); SODIUM, SERUM 142 MMOL/L (135-148); TOTAL BILIRUBIN 0.6 MG/DL (0-1.2); TOTAL PROTEIN 6.3 G/DL (6.0-8.5)
[2016-10-03 03:56] LABS: ALKALINE PHOSPHATASE 107 U/L (45-117); POTASSIUM, SERUM 2.7 MMOL/L (3.5-5.3)
[2016-10-03 04:10] LABS: BUN (BLOOD UREA NITROGEN) 195 MG/DL (6-23)
[2016-10-03 09:17] LABS: HEMATOCRIT 21.5 % (40.0-51.0); HEMOGLOBIN 7.2 g/dL (13.6-17.8)
[2016-10-03 14:01] LABS: WBC (NOT ORDERED) (RFLEX) 0 (0-5)
[2016-10-03 14:07] LABS: ASCORBIC ACID (UR NOT ORDER) NEG (NEG); BILIRUBIN, URINE NEGATIVE (NEG); KETONE, URINE NEGATIVE (NEG); LEUKOCYTE ESTERASE(NOT OR NEG (NEG)
[2016-10-03 16:01] LABS: HEMOGLOBIN 7.9 g/dL (13.6-17.8)
[2016-10-03 16:16] LABS: CALCIUM, SERUM 7.2 MG/DL (8.5-10.4); CHLORIDE, SERUM 107 MMOL/L (96-112); CO2 (CARBON DIOXIDE) 28 MMOL/L (24-34); CREATININE 3.06 MG/DL (0.70-1.30); GFR AFRICAN AMERICAN 23 ML/MIN (>=60); GFR NON AFRICAN AMERICAN 20 ML/MIN (>=60); GLUCOSE, SERUM 119 MG/DL (60-99); SODIUM, SERUM 144 MMOL/L (135-148)
[2016-10-03 16:17] LABS: BUN (BLOOD UREA NITROGEN) 185 MG/DL (6-23); POTASSIUM, SERUM 3.7 MMOL/L (3.5-5.3)
[2016-10-03 21:41] LABS: HEMATOCRIT 22.2 % (40.0-51.0); HEMOGLOBIN 7.1 g/dL (13.6-17.8)
[2016-10-03 23:58] LABS: HEMATOCRIT 21.8 % (40.0-51.0); HEMOGLOBIN 7.3 g/dL (13.6-17.8)
[2016-10-04 06:28] LABS: BASOPHILS 0.5 %; BASOPHILS ABSOLUTE 0.03 10/3/uL (0.0-0.16); EOSINOPHILS 6.2 %; EOSINOPHILS ABSOLUTE 0.39 10/3/uL (0.0-0.53); HEMOGLOBIN 8.2 g/dL (13.6-17.8); IMMATURE GRANULOCYTES 0.6 %; IMMATURE GRANULOCYTES ABSOLUTE 0.04 10/3/uL (0.0-0.11); LYMPHOCYTES 23.3 %; LYMPHOCYTES ABSOLUTE 1.47 10/3/uL (0.67-4.30); MEAN CORPUS HGB CONC 33.1 g/dL (32.0-36.0); MEAN CORPUSCULAR HEMOGLOB 30.5 pg (26.0-34.0); MEAN PLATELET VOLUME 10.5 fL (9.2-13.0); MONOCYTES 7.4 %; MONOCYTES ABSOLUTE 0.47 10/3/uL (0.21-1.20); NEUTROPHILS ABSOLUTE 3.91 10/3/uL (2.02-8.40); PLATELET COUNT 251 10/3/uL (150-400); RBC DISTRIBUTION WIDTH 17.3 % (12.0-16.0); RED CELL COUNT 2.69 10/6/uL (4.7-6.1); WHITE BLOOD CELLS 6.3 10/3/uL (4.5-10.5)
[2016-10-04 06:31] LABS: HEMATOCRIT 24.8 % (40.0-51.0); MANUAL DIFF NO %; MEAN CORPUSCULAR VOLUME 92.2 fL (80-100)
[2016-10-04 06:33] LABS: INTERNATIONAL NORMAL RATI 2.8 UNITS (-)
[2016-10-04 06:35] LABS: PROTIME (NOT ORD) 29.2 SEC (12.0-14.5)
[2016-10-04 06:39] LABS: A/G RATIO 0.8 (0.7-1.9); ALBUMIN 2.6 G/DL (3.5-5.0); ALKALINE PHOSPHATASE 103 U/L (45-117); CALCIUM, SERUM 7.8 MG/DL (8.5-10.4); CHLORIDE, SERUM 112 MMOL/L (96-112); CO2 (CARBON DIOXIDE) 25 MMOL/L (24-34); CREATININE 2.93 MG/DL (0.70-1.30); GFR AFRICAN AMERICAN 24 ML/MIN (>=60); GFR NON AFRICAN AMERICAN 21 ML/MIN (>=60); GLOBULIN 3.3 G/DL (2.5-4.1); GLUCOSE, SERUM 112 MG/DL (60-99); PHOSPHORUS, SERUM 3.6 MG/DL (2.5-4.5); POTASSIUM, SERUM 3.7 MMOL/L (3.5-5.3); SGOT(AST) 34 U/L (5-40); SGPT(ALT) 21 U/L (5-65); SODIUM, SERUM 145 MMOL/L (135-148); TOTAL BILIRUBIN 0.6 MG/DL (0-1.2); TOTAL PROTEIN 5.9 G/DL (6.0-8.5)
[2016-10-04 06:50] LABS: BUN (BLOOD UREA NITROGEN) 167 MG/DL (6-23)
[2016-10-05 06:36] LABS: BASOPHILS 0.3 %; BASOPHILS ABSOLUTE 0.02 10/3/uL (0.0-0.16); EOSINOPHILS 5.7 %; EOSINOPHILS ABSOLUTE 0.33 10/3/uL (0.0-0.53); HEMATOCRIT 22.6 % (40.0-51.0); HEMOGLOBIN 7.6 g/dL (13.6-17.8); IMMATURE GRANULOCYTES 0.3 %; IMMATURE GRANULOCYTES ABSOLUTE 0.02 10/3/uL (0.0-0.11); LYMPHOCYTES ABSOLUTE 1.21 10/3/uL (0.67-4.30); MEAN CORPUS HGB CONC 33.6 g/dL (32.0-36.0); MEAN CORPUSCULAR HEMOGLOB 31.3 pg (26.0-34.0); MEAN PLATELET VOLUME 10.1 fL (9.2-13.0); MONOCYTES 6.8 %; MONOCYTES ABSOLUTE 0.39 10/3/uL (0.21-1.20); NEUTROPHILS 65.9 %; PLATELET COUNT 213 10/3/uL (150-400); RBC DISTRIBUTION WIDTH 18.2 % (12.0-16.0); RED CELL COUNT 2.43 10/6/uL (4.7-6.1); WHITE BLOOD CELLS 5.8 10/3/uL (4.5-10.5)
[2016-10-05 06:41] LABS: INTERNATIONAL NORMAL RATI 2.4 UNITS (-)
[2016-10-05 06:42] LABS: MANUAL DIFF NO %
[2016-10-05 06:45] LABS: ALBUMIN 2.6 G/DL (3.5-5.0); BUN (BLOOD UREA NITROGEN) 130 MG/DL (6-23); CHLORIDE, SERUM 112 MMOL/L (96-112); CO2 (CARBON DIOXIDE) 27 MMOL/L (24-34); CREATININE 2.74 MG/DL (0.70-1.30); GFR AFRICAN AMERICAN 26 ML/MIN (>=60); GFR NON AFRICAN AMERICAN 22 ML/MIN (>=60); GLUCOSE, SERUM 128 MG/DL (60-99); PHOSPHORUS, SERUM 3.6 MG/DL (2.5-4.5); POTASSIUM, SERUM 3.5 MMOL/L (3.5-5.3); SODIUM, SERUM 142 MMOL/L (135-148)
[2016-10-05 17:03] LABS: HEMATOCRIT 22.6 % (40.0-51.0); HEMOGLOBIN 7.6 g/dL (13.6-17.8)
[2016-10-06 05:35] LABS: BASOPHILS 0.2 %; BASOPHILS ABSOLUTE 0.01 10/3/uL (0.0-0.16); EOSINOPHILS 6.9 %; EOSINOPHILS ABSOLUTE 0.37 10/3/uL (0.0-0.53); HEMATOCRIT 22.7 % (40.0-51.0); HEMOGLOBIN 7.5 g/dL (13.6-17.8); IMMATURE GRANULOCYTES 0.2 %; IMMATURE GRANULOCYTES ABSOLUTE 0.01 10/3/uL (0.0-0.11); LYMPHOCYTES 24.3 %; MEAN CORPUSCULAR VOLUME 93.8 fL (80-100); MEAN PLATELET VOLUME 10.1 fL (9.2-13.0); MONOCYTES 7.7 %; MONOCYTES ABSOLUTE 0.41 10/3/uL (0.21-1.20); NEUTROPHILS 60.7 %; NEUTROPHILS ABSOLUTE 3.24 10/3/uL (2.02-8.40); PLATELET COUNT 228 10/3/uL (150-400); RBC DISTRIBUTION WIDTH 18.5 % (12.0-16.0); RED CELL COUNT 2.42 10/6/uL (4.7-6.1); WHITE BLOOD CELLS 5.3 10/3/uL (4.5-10.5)
[2016-10-06 05:36] LABS: MANUAL DIFF NO %
[2016-10-06 05:47] LABS: CALCIUM, SERUM 8.1 MG/DL (8.5-10.4); CHLORIDE, SERUM 110 MMOL/L (96-112); CO2 (CARBON DIOXIDE) 25 MMOL/L (24-34); CREATININE 2.46 MG/DL (0.70-1.30); GFR AFRICAN AMERICAN 30 ML/MIN (>=60); GFR NON AFRICAN AMERICAN 26 ML/MIN (>=60); POTASSIUM, SERUM 3.7 MMOL/L (3.5-5.3); SODIUM, SERUM 142 MMOL/L (135-148)
[2016-10-06 05:48] LABS: BUN (BLOOD UREA NITROGEN) 108 MG/DL (6-23); GLUCOSE, SERUM 160 MG/DL (60-99)
[2016-10-07 06:55] LABS: BASOPHILS 0.4 %; BASOPHILS ABSOLUTE 0.02 10/3/uL (0.0-0.16); EOSINOPHILS 9.6 %; HEMATOCRIT 21.5 % (40.0-51.0); HEMOGLOBIN 7.2 g/dL (13.6-17.8); LYMPHOCYTES 23.6 %; LYMPHOCYTES ABSOLUTE 1.23 10/3/uL (0.67-4.30); MEAN CORPUS HGB CONC 33.5 g/dL (32.0-36.0); MEAN CORPUSCULAR HEMOGLOB 31.4 pg (26.0-34.0); MEAN CORPUSCULAR VOLUME 93.9 fL (80-100); MEAN PLATELET VOLUME 10.3 fL (9.2-13.0); MONOCYTES ABSOLUTE 0.52 10/3/uL (0.21-1.20); NEUTROPHILS 56.4 %; NEUTROPHILS ABSOLUTE 2.94 10/3/uL (2.02-8.40); PLATELET COUNT 216 10/3/uL (150-400); RBC DISTRIBUTION WIDTH 18.3 % (12.0-16.0); RED CELL COUNT 2.29 10/6/uL (4.7-6.1); WHITE BLOOD CELLS 5.2 10/3/uL (4.5-10.5)
[2016-10-07 06:56] LABS: MANUAL DIFF NO %
[2016-10-07 07:05] LABS: ALBUMIN 2.5 G/DL (3.5-5.0); BUN (BLOOD UREA NITROGEN) 97 MG/DL (6-23); CALCIUM, SERUM 8.2 MG/DL (8.5-10.4); CHLORIDE, SERUM 112 MMOL/L (96-112); CO2 (CARBON DIOXIDE) 26 MMOL/L (24-34); CREATININE 2.42 MG/DL (0.70-1.30); GFR AFRICAN AMERICAN 30 ML/MIN (>=60); GFR NON AFRICAN AMERICAN 26 ML/MIN (>=60); GLUCOSE, SERUM 106 MG/DL (60-99); PHOSPHORUS, SERUM 4.1 MG/DL (2.5-4.5); POTASSIUM, SERUM 3.9 MMOL/L (3.5-5.3); SODIUM, SERUM 141 MMOL/L (135-148)
[2016-10-08 05:41] LABS: BASOPHILS 0.2 %; BASOPHILS ABSOLUTE 0.01 10/3/uL (0.0-0.16); EOSINOPHILS 8.7 %; EOSINOPHILS ABSOLUTE 0.46 10/3/uL (0.0-0.53); HEMATOCRIT 21.8 % (40.0-51.0); HEMOGLOBIN 7.3 g/dL (13.6-17.8); IMMATURE GRANULOCYTES 0.2 %; IMMATURE GRANULOCYTES ABSOLUTE 0.01 10/3/uL (0.0-0.11); LYMPHOCYTES 23.2 %; LYMPHOCYTES ABSOLUTE 1.22 10/3/uL (0.67-4.30); MEAN CORPUS HGB CONC 33.5 g/dL (32.0-36.0); MEAN CORPUSCULAR HEMOGLOB 31.7 pg (26.0-34.0); MEAN CORPUSCULAR VOLUME 94.8 fL (80-100); MEAN PLATELET VOLUME 10.6 fL (9.2-13.0); MONOCYTES ABSOLUTE 0.42 10/3/uL (0.21-1.20); NEUTROPHILS 59.7 %; NEUTROPHILS ABSOLUTE 3.14 10/3/uL (2.02-8.40); PLATELET COUNT 237 10/3/uL (150-400); RBC DISTRIBUTION WIDTH 18.3 % (12.0-16.0); WHITE BLOOD CELLS 5.3 10/3/uL (4.5-10.5)
[2016-10-08 05:42] LABS: MANUAL DIFF NO %
[2016-10-08 05:48] LABS: INTERNATIONAL NORMAL RATI 1.3 UNITS (-)
[2016-10-08 05:49] LABS: PROTIME (NOT ORD) 16.5 SEC (12.0-14.5)
[2016-10-08 05:54] LABS: CALCIUM, SERUM 8.2 MG/DL (8.5-10.4); CHLORIDE, SERUM 113 MMOL/L (96-112); CO2 (CARBON DIOXIDE) 23 MMOL/L (24-34); CREATININE 2.36 MG/DL (0.70-1.30); GFR AFRICAN AMERICAN 31 ML/MIN (>=60); GFR NON AFRICAN AMERICAN 27 ML/MIN (>=60); GLUCOSE, SERUM 112 MG/DL (60-99); POTASSIUM, SERUM 4.3 MMOL/L (3.5-5.3); SODIUM, SERUM 144 MMOL/L (135-148)
[2016-10-08 05:55] LABS: BUN (BLOOD UREA NITROGEN) 83 MG/DL (6-23)
[2016-10-08 06:00] LABS: PARTIAL THROMBO TIME > 150.0 SEC (22.5-37.2)
[2016-10-09 05:58] LABS: BASOPHILS 0.3 %; BASOPHILS ABSOLUTE 0.02 10/3/uL (0.0-0.16); EOSINOPHILS 10.2 %; EOSINOPHILS ABSOLUTE 0.59 10/3/uL (0.0-0.53); HEMOGLOBIN 8.4 g/dL (13.6-17.8); IMMATURE GRANULOCYTES 0.2 %; IMMATURE GRANULOCYTES ABSOLUTE 0.01 10/3/uL (0.0-0.11); LYMPHOCYTES ABSOLUTE 1.45 10/3/uL (0.67-4.30); MEAN CORPUS HGB CONC 32.3 g/dL (32.0-36.0); MEAN CORPUSCULAR HEMOGLOB 30.5 pg (26.0-34.0); MEAN CORPUSCULAR VOLUME 94.5 fL (80-100); MEAN PLATELET VOLUME 10.8 fL (9.2-13.0); MONOCYTES ABSOLUTE 0.58 10/3/uL (0.21-1.20); NEUTROPHILS 54.3 %; NEUTROPHILS ABSOLUTE 3.15 10/3/uL (2.02-8.40); PLATELET COUNT 250 10/3/uL (150-400); RBC DISTRIBUTION WIDTH 18.2 % (12.0-16.0); RED CELL COUNT 2.75 10/6/uL (4.7-6.1); WHITE BLOOD CELLS 5.8 10/3/uL (4.5-10.5)
[2016-10-09 06:00] LABS: MANUAL DIFF NO %
[2016-10-09 06:03] LABS: INTERNATIONAL NORMAL RATI 1.3 UNITS (-); PROTIME (NOT ORD) 15.6 SEC (12.0-14.5)
[2016-10-09 06:12] LABS: ALBUMIN 2.8 G/DL (3.5-5.0); CALCIUM, SERUM 8.5 MG/DL (8.5-10.4); CHLORIDE, SERUM 108 MMOL/L (96-112); CO2 (CARBON DIOXIDE) 26 MMOL/L (24-34); GFR AFRICAN AMERICAN 29 ML/MIN (>=60); GFR NON AFRICAN AMERICAN 25 ML/MIN (>=60); GLUCOSE, SERUM 92 MG/DL (60-99); PHOSPHORUS, SERUM 3.9 MG/DL (2.5-4.5); POTASSIUM, SERUM 4.6 MMOL/L (3.5-5.3); SODIUM, SERUM 139 MMOL/L (135-148)
[2016-10-09 06:14] LABS: BUN (BLOOD UREA NITROGEN) 79 MG/DL (6-23)
[2016-10-09 19:38] LABS: HEMATOCRIT 26.4 % (40.0-51.0); HEMOGLOBIN 8.5 g/dL (13.6-17.8)
[2016-10-10 02:39] LABS: HEMATOCRIT 24.4 % (40.0-51.0)
[2016-10-10 02:48] LABS: INTERNATIONAL NORMAL RATI 1.1 UNITS (-); PROTIME (NOT ORD) 14.2 SEC (12.0-14.5)
[2016-10-11 05:11] LABS: BASOPHILS 0.1 %; BASOPHILS ABSOLUTE 0.01 10/3/uL (0.0-0.16); EOSINOPHILS 5.1 %; HEMATOCRIT 25.8 % (40.0-51.0); HEMOGLOBIN 8.3 g/dL (13.6-17.8); IMMATURE GRANULOCYTES 0.3 %; IMMATURE GRANULOCYTES ABSOLUTE 0.02 10/3/uL (0.0-0.11); LYMPHOCYTES 17.9 %; LYMPHOCYTES ABSOLUTE 1.41 10/3/uL (0.67-4.30); MEAN CORPUS HGB CONC 32.2 g/dL (32.0-36.0); MEAN CORPUSCULAR HEMOGLOB 30.5 pg (26.0-34.0); MEAN CORPUSCULAR VOLUME 94.9 fL (80-100); MEAN PLATELET VOLUME 10.7 fL (9.2-13.0); MONOCYTES 9.3 %; MONOCYTES ABSOLUTE 0.73 10/3/uL (0.21-1.20); NEUTROPHILS 67.3 %; NEUTROPHILS ABSOLUTE 5.31 10/3/uL (2.02-8.40); PLATELET COUNT 280 10/3/uL (150-400); RBC DISTRIBUTION WIDTH 17.6 % (12.0-16.0); RED CELL COUNT 2.72 10/6/uL (4.7-6.1); WHITE BLOOD CELLS 7.9 10/3/uL (4.5-10.5)
[2016-10-11 05:17] LABS: MANUAL DIFF NO %
[2016-10-11 05:22] LABS: INTERNATIONAL NORMAL RATI 1.3 UNITS (-); PROTIME (NOT ORD) 15.7 SEC (12.0-14.5)
[2016-10-11 05:48] LABS: ALBUMIN 2.8 G/DL (3.5-5.0); BUN (BLOOD UREA NITROGEN) 68 MG/DL (6-23); CALCIUM, SERUM 8.2 MG/DL (8.5-10.4); CHLORIDE, SERUM 111 MMOL/L (96-112); CO2 (CARBON DIOXIDE) 20 MMOL/L (24-34); CREATININE 2.99 MG/DL (0.70-1.30); GFR AFRICAN AMERICAN 23 ML/MIN (>=60); GFR NON AFRICAN AMERICAN 20 ML/MIN (>=60); GLUCOSE, SERUM 106 MG/DL (60-99); PHOSPHORUS, SERUM 4.4 MG/DL (2.5-4.5); POTASSIUM, SERUM 5.2 MMOL/L (3.5-5.3); SODIUM, SERUM 140 MMOL/L (135-148)
[2016-10-11 15:57] LABS: HEMATOCRIT 25.1 % (40.0-51.0); HEMOGLOBIN 8.2 g/dL (13.6-17.8)
[2016-10-12 06:22] LABS: BASOPHILS 0.2 %; BASOPHILS ABSOLUTE 0.01 10/3/uL (0.0-0.16); EOSINOPHILS 6.1 %; EOSINOPHILS ABSOLUTE 0.35 10/3/uL (0.0-0.53); HEMOGLOBIN 7.9 g/dL (13.6-17.8); IMMATURE GRANULOCYTES 0.2 %; IMMATURE GRANULOCYTES ABSOLUTE 0.01 10/3/uL (0.0-0.11); LYMPHOCYTES 18.1 %; LYMPHOCYTES ABSOLUTE 1.04 10/3/uL (0.67-4.30); MEAN CORPUS HGB CONC 32.9 g/dL (32.0-36.0); MEAN CORPUSCULAR HEMOGLOB 31.2 pg (26.0-34.0); MEAN CORPUSCULAR VOLUME 94.9 fL (80-100); MEAN PLATELET VOLUME 10.7 fL (9.2-13.0); MONOCYTES 9.7 %; MONOCYTES ABSOLUTE 0.56 10/3/uL (0.21-1.20); NEUTROPHILS 65.7 %; NEUTROPHILS ABSOLUTE 3.78 10/3/uL (2.02-8.40); PLATELET COUNT 258 10/3/uL (150-400); RBC DISTRIBUTION WIDTH 17.1 % (12.0-16.0); RED CELL COUNT 2.53 10/6/uL (4.7-6.1); WHITE BLOOD CELLS 5.8 10/3/uL (4.5-10.5)
[2016-10-12 06:26] LABS: MANUAL DIFF NO %
[2016-10-12 06:32] LABS: INTERNATIONAL NORMAL RATI 1.4 UNITS (-); PROTIME (NOT ORD) 16.8 SEC (12.0-14.5)
[2016-10-12 06:34] LABS: ALBUMIN 2.6 G/DL (3.5-5.0); CALCIUM, SERUM 8.8 MG/DL (8.5-10.4); CHLORIDE, SERUM 110 MMOL/L (96-112); CO2 (CARBON DIOXIDE) 23 MMOL/L (24-34); CREATININE 2.55 MG/DL (0.70-1.30); GFR AFRICAN AMERICAN 28 ML/MIN (>=60); GFR NON AFRICAN AMERICAN 24 ML/MIN (>=60); GLUCOSE, SERUM 100 MG/DL (60-99); PHOSPHORUS, SERUM 4.3 MG/DL (2.5-4.5); POTASSIUM, SERUM 5.1 MMOL/L (3.5-5.3); SODIUM, SERUM 138 MMOL/L (135-148)
[2016-10-12 06:35] LABS: BUN (BLOOD UREA NITROGEN) 64 MG/DL (6-23)
[2016-10-13 00:49] LABS: HEMATOCRIT 25.4 % (40.0-51.0); HEMOGLOBIN 8.1 g/dL (13.6-17.8)
[2016-10-13 00:58] LABS: INTERNATIONAL NORMAL RATI 1.4 UNITS (-); PROTIME (NOT ORD) 17.2 SEC (12.0-14.5)
[2016-10-13 00:59] LABS: PARTIAL THROMBO TIME 73.8 SEC (22.5-37.2)
[2016-10-14 01:24] LABS: BASOPHILS 0.4 %; BASOPHILS ABSOLUTE 0.02 10/3/uL (0.0-0.16); EOSINOPHILS 8.7 %; EOSINOPHILS ABSOLUTE 0.42 10/3/uL (0.0-0.53); HEMATOCRIT 26.5 % (40.0-51.0); HEMOGLOBIN 8.3 g/dL (13.6-17.8); IMMATURE GRANULOCYTES 0.2 %; IMMATURE GRANULOCYTES ABSOLUTE 0.01 10/3/uL (0.0-0.11); LYMPHOCYTES 25.4 %; LYMPHOCYTES ABSOLUTE 1.22 10/3/uL (0.67-4.30); MEAN CORPUS HGB CONC 31.3 g/dL (32.0-36.0); MEAN CORPUSCULAR HEMOGLOB 30.4 pg (26.0-34.0); MEAN CORPUSCULAR VOLUME 97.1 fL (80-100); MEAN PLATELET VOLUME 10.3 fL (9.2-13.0); MONOCYTES 11.2 %; MONOCYTES ABSOLUTE 0.54 10/3/uL (0.21-1.20); NEUTROPHILS 54.1 %; PLATELET COUNT 301 10/3/uL (150-400); RBC DISTRIBUTION WIDTH 16.5 % (12.0-16.0); RED CELL COUNT 2.73 10/6/uL (4.7-6.1); WHITE BLOOD CELLS 4.8 10/3/uL (4.5-10.5)
[2016-10-14 01:27] LABS: MANUAL DIFF NO %
[2016-10-14 01:34] LABS: INTERNATIONAL NORMAL RATI 1.6 UNITS (-); PROTIME (NOT ORD) 18.8 SEC (12.0-14.5)
[2016-10-14 01:36] LABS: ALBUMIN 2.8 G/DL (3.5-5.0); CALCIUM, SERUM 8.3 MG/DL (8.5-10.4); CHLORIDE, SERUM 114 MMOL/L (96-112); CO2 (CARBON DIOXIDE) 20 MMOL/L (24-34); CREATININE 2.18 MG/DL (0.70-1.30); GFR AFRICAN AMERICAN 34 ML/MIN (>=60); GFR NON AFRICAN AMERICAN 30 ML/MIN (>=60); PHOSPHORUS, SERUM 4.7 MG/DL (2.5-4.5); POTASSIUM, SERUM 5.8 MMOL/L (3.5-5.3); SODIUM, SERUM 140 MMOL/L (135-148)
[2016-10-14 01:40] LABS: BUN (BLOOD UREA NITROGEN) 59 MG/DL (6-23); GLUCOSE, SERUM 141 MG/DL (60-99)
[2016-10-14 01:41] LABS: PARTIAL THROMBO TIME 148.6 SEC (22.5-37.2)
[2016-10-14 14:10] LABS: TROPONIN I 0.03 NG/ML (<0.05)
[2016-10-15 05:59] LABS: BASOPHILS 0.7 %; BASOPHILS ABSOLUTE 0.03 10/3/uL (0.0-0.16); EOSINOPHILS 7.3 %; HEMATOCRIT 25.8 % (40.0-51.0); HEMOGLOBIN 8.1 g/dL (13.6-17.8); IMMATURE GRANULOCYTES 0.2 %; IMMATURE GRANULOCYTES ABSOLUTE 0.01 10/3/uL (0.0-0.11); LYMPHOCYTES 21.2 %; LYMPHOCYTES ABSOLUTE 0.87 10/3/uL (0.67-4.30); MANUAL DIFF NO %; MEAN CORPUS HGB CONC 31.4 g/dL (32.0-36.0); MEAN CORPUSCULAR HEMOGLOB 30.1 pg (26.0-34.0); MEAN CORPUSCULAR VOLUME 95.9 fL (80-100); MEAN PLATELET VOLUME 9.5 fL (9.2-13.0); MONOCYTES 15.3 %; MONOCYTES ABSOLUTE 0.63 10/3/uL (0.21-1.20); NEUTROPHILS 55.3 %; NEUTROPHILS ABSOLUTE 2.27 10/3/uL (2.02-8.40); PLATELET COUNT 267 10/3/uL (150-400); RBC DISTRIBUTION WIDTH 16.3 % (12.0-16.0); RED CELL COUNT 2.69 10/6/uL (4.7-6.1); RETICULOCYTE COUNT 5.1 % (0.5-2.5); RETICULOCYTE COUNT ABSOLUTE 135.8 10/3/uL (20.2-119.8); WHITE BLOOD CELLS 4.1 10/3/uL (4.5-10.5)
[2016-10-15 06:04] LABS: INTERNATIONAL NORMAL RATI 1.9 UNITS (-)
[2016-10-15 06:06] LABS: PROTIME (NOT ORD) 21.8 SEC (12.0-14.5)
[2016-10-15 06:16] LABS: PARTIAL THROMBO TIME > 150.0 SEC (22.5-37.2)
[2016-10-15 06:17] LABS: ALBUMIN 2.8 G/DL (3.5-5.0); BUN (BLOOD UREA NITROGEN) 51 MG/DL (6-23); CALCIUM, SERUM 8.6 MG/DL (8.5-10.4); CHLORIDE, SERUM 113 MMOL/L (96-112); CO2 (CARBON DIOXIDE) 21 MMOL/L (24-34); CREATININE 2.09 MG/DL (0.70-1.30); GFR AFRICAN AMERICAN 36 ML/MIN (>=60); GFR NON AFRICAN AMERICAN 31 ML/MIN (>=60); GLUCOSE, SERUM 90 MG/DL (60-99); PHOSPHORUS, SERUM 4.7 MG/DL (2.5-4.5); POTASSIUM, SERUM 4.9 MMOL/L (3.5-5.3); SODIUM, SERUM 141 MMOL/L (135-148)
[2016-10-16 06:15] LABS: BASOPHILS 0.5 %; BASOPHILS ABSOLUTE 0.02 10/3/uL (0.0-0.16); EOSINOPHILS 6.4 %; EOSINOPHILS ABSOLUTE 0.26 10/3/uL (0.0-0.53); HEMATOCRIT 24.5 % (40.0-51.0); HEMOGLOBIN 7.9 g/dL (13.6-17.8); IMMATURE GRANULOCYTES 0.2 %; IMMATURE GRANULOCYTES ABSOLUTE 0.01 10/3/uL (0.0-0.11); LYMPHOCYTES 16.8 %; LYMPHOCYTES ABSOLUTE 0.68 10/3/uL (0.67-4.30); MANUAL DIFF NO %; MEAN CORPUS HGB CONC 32.2 g/dL (32.0-36.0); MEAN CORPUSCULAR VOLUME 96.1 fL (80-100); MEAN PLATELET VOLUME 9.8 fL (9.2-13.0); MONOCYTES 16.8 %; MONOCYTES ABSOLUTE 0.68 10/3/uL (0.21-1.20); NEUTROPHILS 59.3 %; NEUTROPHILS ABSOLUTE 2.39 10/3/uL (2.02-8.40); PLATELET COUNT 277 10/3/uL (150-400); RBC DISTRIBUTION WIDTH 16.4 % (12.0-16.0); RED CELL COUNT 2.55 10/6/uL (4.7-6.1)
[2016-10-16 06:21] LABS: INTERNATIONAL NORMAL RATI 2.4 UNITS (-)
[2016-10-16 06:22] LABS: PROTIME (NOT ORD) 25.9 SEC (12.0-14.5)
[2016-10-16 06:24] LABS: PARTIAL THROMBO TIME 135.5 SEC (22.5-37.2)
[2016-10-16 06:27] LABS: CALCIUM, SERUM 8.6 MG/DL (8.5-10.4); CHLORIDE, SERUM 115 MMOL/L (96-112); CO2 (CARBON DIOXIDE) 20 MMOL/L (24-34); GFR AFRICAN AMERICAN 38 ML/MIN (>=60); GFR NON AFRICAN AMERICAN 33 ML/MIN (>=60); GLUCOSE, SERUM 96 MG/DL (60-99); POTASSIUM, SERUM 4.6 MMOL/L (3.5-5.3); SODIUM, SERUM 144 MMOL/L (135-148)
[2016-10-16 06:28] LABS: BUN (BLOOD UREA NITROGEN) 45 MG/DL (6-23)
[2016-10-16] MEDS ORDERED: PROTONIX PO (15:48)
[2016-10-16] MEDS ORDERED: MIRALAX POWDER1 PKT PO (15:49)
[2016-10-16] MEDS ORDERED: T PO (15:51)
[2017-01-21] MEDS ORDERED: L20 PO (21:31)
[2017-01-21] MEDS ORDERED: NORCO1 TAB PO (21:32)
[2017-01-21] MEDS ORDERED: LIPITOR40 PO (21:32)
[2017-01-21] MEDS ORDERED: C5 PO (21:33)
[2017-01-21] MEDS ORDERED: C1 PO (21:34)
[2017-01-21] MEDS ORDERED: COUMADIN6 MG PO (21:34)
[2017-01-21] MEDS ORDERED: ROCALTROL 0.0.25 MCG PO (21:34)
[2017-01-21] MEDS ORDERED: ZAROX2.5B PO (21:35)
[2017-01-21] MEDS ORDERED: NORV5 PO (21:36)
[2017-01-21] MEDS ORDERED: ZANAFLEX 4 MG TA4 MG PO (21:36)
[2017-01-21] MEDS ORDERED: Z100 PO (21:36)
[2017-01-21] MEDS ORDERED: LYRICA75 PO (21:36)
[2017-01-21] MEDS ORDERED: AMB10 PO (21:37)
[2017-01-21] MEDS ORDERED: VITD PO (21:37)
[2017-01-21] MEDS ORDERED: CYMBALTA60 PO (21:37)
[2017-01-21] MEDS ORDERED: SYN.05 PO (21:38)
[2017-01-21] MEDS ORDERED: PROTONIX PO (21:38)
[2017-01-21] MEDS ORDERED: MOVANTIK12.5 MG PO (21:38)
[2017-01-21] MEDS ORDERED: COREG6 PO (21:39)
[2017-01-21] MEDS ORDERED: CARTIA XT120 MG/24 PO (21:40)
[2017-01-21] MEDS ORDERED: NITROSTAT0.4 MG SL (21:40)
[2017-01-21] MEDS ORDERED: 8 HOUR650 MG PO (21:41)
[2017-01-21] MEDS ORDERED: ASAB PO (21:42)
[2017-01-21] MEDS ORDERED: CYANO1000T PO (21:42)
[2017-01-21] MEDS ORDERED: FISH-EPA1000 MG PO (21:43)
[2017-01-21] MEDS ORDERED: MULTIVIT/MIN PO (21:43)
[2017-01-21] MEDS ORDERED: FERROUS SULF325 M1 PO (21:43)
[2017-01-21] MEDS ORDERED: BACTROCR TOP (21:44)
[2017-01-29] MEDS ORDERED: PHOSLO PO (15:32)
[2017-02-02] MEDS ORDERED: COUMADIN4 MG PO (13:52)
[2017-02-03] MEDS ORDERED: AMB10 PO (12:04)
== END 2016-10-16 17:56 | disposition home or self-care (01) | DRG 378 ==
LOC: ER 16:29 → IMCU 18:01 → 7NO 10-06 14:35
PROVIDERS: Emergency Medicine; Family Medicine; Internal Medicine; Internal Medicine Gastroenterology; Internal Medicine Nephrology; Nurse Practitioner; Nurse Practitioner Family; Registered Nurse
PROC: 30233N1 Transfusion of Nonautologous Red Blood Cells into Peripheral Vein, Percutaneous Approach (ICD-10-PCS; 2016-10-03)
PROC: 0DJD8ZZ Inspection of Lower Intestinal Tract, Via Natural or Artificial Opening Endoscopic (ICD-10-PCS; 2016-10-09)
PROC: 0DJ08ZZ Inspection of Upper Intestinal Tract, Via Natural or Artificial Opening Endoscopic (ICD-10-PCS; principal; 2016-10-09 15:13)
DX: K92.2 Gastrointestinal hemorrhage, unspecified (principal); N18.4 Chronic kidney disease, stage 4 (severe); E11.22 Type 2 diabetes mellitus with diabetic chronic kidney disease; N17.9 Acute kidney failure, unspecified; I48.2 Chronic atrial fibrillation; I13.0 Hypertensive heart and chronic kidney disease with heart failure and stage 1 through stage 4 chronic kidney disease, or unspecified chronic kidney disease; I50.42 Chronic combined systolic (congestive) and diastolic (congestive) heart failure; N25.81 Secondary hyperparathyroidism of renal origin; D62 Acute posthemorrhagic anemia; K64.8 Other hemorrhoids; E03.9 Hypothyroidism, unspecified; E87.6 Hypokalemia; I25.10 Atherosclerotic heart disease of native coronary artery without angina pectoris; E66.9 Obesity, unspecified; N25.0 Renal osteodystrophy; W19.XXXA Unspecified fall, initial encounter; K29.70 Gastritis, unspecified, without bleeding; Z95.2 Presence of prosthetic heart valve; Z79.01 Long term (current) use of anticoagulants; Z95.1 Presence of aortocoronary bypass graft; Z98.84 Bariatric surgery status; Z68.38 Body mass index [BMI] 38.0-38.9, adult; Z91.041 Radiographic dye allergy status; Z87.891 Personal history of nicotine dependence; Z87.442 Personal history of urinary calculi; Z79.82 Long term (current) use of aspirin; Z90.49 Acquired absence of other specified parts of digestive tract
CPT/HCPCS: 36415; 70450; 78492; 80048; 80053; 80069; 81001; 82962; 83036; 83735; 83880; 84484; 85014; 85018; 85025; 85045; 85610; 85730; 86850; 86870; 86900; 86901; 86902; 86905; 86920; 86922; 87641; 90471; 90714; 93005; 93017; 96365; 96376; 97161-GP; 99285; A9270-GY; A9555; C9113; G8978-CH-GP; G8979-CH-GP; G8980-CH-GP; J0456; J1170; J1580; J1610; J2370; J2765; J2785; J2916; P9016